=== PATIENT | male | born 1955 | race Hispanic/Latino ===

== ENCOUNTER 2017-11-15 18:22 | Emergency (ER) | payer OTHER ==
[2017-11-15 18:58] LABS: APPEARANCE,URINE Cloudy (CLEAR); BILIRUBIN,URINE Moderate (NEGATIVE); COLOR,URINE Dark Yellow (YELLOW); GLUCOSE, URINE (UA) Negative (NEGATIVE); KETONES,URINE Trace mg/dL (NEGATIVE); LEUKOCYTE ESTERASE ,URINE Trace (NEGATIVE); NITRATE,URINE Negative (NEGATIVE); OCCULT BLOOD,URINE Negative (NEGATIVE); PROTEIN,URINE 300 (NEGATIVE)
[2017-11-15 18:59] LABS: BASOPHILS % (AUTO) 0.3 % (0.0-5.0); EOSINOPHILS % (AUTO) 2.2 % (0.0-8.0); HEMATOCRIT 47.5 % (42-54); LYMPHOCYTES % (AUTO) 7.7 % (21.0-51.0); MEAN CORPUSCULAR HEMOGLOBIN 29.6 pg (27.0-33.0); MEAN CORPUSCULAR HGB CONC 33.8 g/dL (32.0-36.0); MEAN CORPUSCULAR VOLUME 87.4 fL (79-99); MONOCYTES % (AUTO) 10.7 % (3.0-13.0); NEUTROPHILS % (AUTO) 79.1 % (40.0-77.0); PLATELET COUNT (AUTO) 365 K/uL (130-400); RED BLOOD CELL COUNT(AUTO) 5.43 MIL/uL (4.50-6.20); RED CELL DISTRIBUTION WIDTH 13.7 % (11.0-15.5); WHITE BLOOD COUNT (AUTO) 15.6 K/uL (4.8-10.8)
[2017-11-15 19:01] LABS: CARBON DIOXIDE 22 mmol/L (21-32); CHLORIDE 103 mmol/L (101-111); GLOMERULAR FILTR. RATE CALC 80 mL/min (>60); GLUCOSE,RANDOM 179 mg/dL (70-105); INR 0.92 (0.85-1.15); PARTIAL THROMBOPLASTIN TIME 26.6 SEC (26.3-35.5); POTASSIUM 4.4 mmol/L (3.5-5.1); PROTHROMBIN TIME 9.7 SEC (9.6-11.6); SODIUM SERUM 137 mmol/L (136-145); UREA NITROGEN, BLOOD 17 mg/dL (7-18)
[2017-11-15 19:16] LABS: ALANINE AMINOTRANSFERASE 21 U/L (12-78); ALBUMIN 3.5 g/dL (3.5-5.0); ASPARTATE AMINOTRANSFERASE 23 U/L (10-37); BILIRUBIN,TOTAL 0.5 mg/dL (0.2-1.0); CREATINE KINASE MB < 0.5 ng/mL (0.5-3.6); CREATINE KINASE, TOTAL 75 U/L (21-232); MYOGLOBIN 65 ng/mL (10-92); TOTAL PROTEIN, SERUM 7.1 g/dL (6.0-8.3); TROPONIN I < 0.04 ng/mL (0.00-0.06)
[2017-11-15] MEDS ORDERED: ACETAMINOPHEN 325 MG TAB ONE (19:19)
[2017-11-15] MEDS ORDERED: ONDANSETRON HCL 4 MG/2 ML VIAL ONE (19:19)
[2017-11-15] MEDS ORDERED: MORPHINE SULFATE 2 MG/ML 1ML SYG ONE (19:28)
[2017-11-15 19:39] LABS: HYALINE CASTS, URINE 0-1 /LPF (0-1 /LPF)
[2017-11-15 19:40] LABS: AMORPHOUS SEDIMENT,UR Few /LPF (None Seen); BACTERIA,URINE Few /HPF (None Seen); MUCUS,URINE Many LPF (None Seen); RBC,URINE 0-1 /HPF (0-1); WBC,URINE 0-1 /HPF (0-1)
[2017-11-15] MEDS ORDERED: SUCRALFATE 1 GM TABLET ONE (22:20)
== END 2017-11-15 23:24 | disposition home or self-care (01) ==
LOC: EDH 18:22
DX: A09 Infectious gastroenteritis and colitis, unspecified (principal); E86.0 Dehydration; E11.9 Type 2 diabetes mellitus without complications; E78.5 Hyperlipidemia, unspecified; I10 Essential (primary) hypertension; Z86.73 Personal history of transient ischemic attack (TIA), and cerebral infarction without residual deficits; Z72.0 Tobacco use
CPT/HCPCS: 36415; 71045; 80053; 81001; 82550; 82553; 83605; 83874; 84484; 85025; 85610; 85730; 87040 ×2; 87088; 93005; 96361; 96374; 96375; 99285; J2405

== ENCOUNTER 2019-01-22 04:00 | Inpatient (IN) | payer OTHER | END 2019-01-23 19:20 | disposition home or self-care (01) | LOC: EDH 04:00 → EDHIP 05:25 → 2DH 06:12 | PROC: B2111ZZ Fluoroscopy of Multiple Coronary Arteries using Low Osmolar Contrast (ICD-10-PCS; principal; ~2019-01-22) | PROC: 4A023N7 Measurement of Cardiac Sampling and Pressure, Left Heart, Percutaneous Approach (ICD-10-PCS; ~2019-01-22) | PROC: B2151ZZ Fluoroscopy of Left Heart using Low Osmolar Contrast (ICD-10-PCS; ~2019-01-22) | DX: I21.4 Non-ST elevation (NSTEMI) myocardial infarction (principal); I16.1 Hypertensive emergency; I34.0 Nonrheumatic mitral (valve) insufficiency; F17.200 Nicotine dependence, unspecified, uncomplicated; I25.110 Atherosclerotic heart disease of native coronary artery with unstable angina pectoris; I10 Essential (primary) hypertension ==

== ENCOUNTER 2019-05-20 14:18 | Observation (INO) | payer OTHER ==
[~2019-05-20] VITALS: Ht 170.2 cm; Wt 79.7 kg
[~2019-05-20 14:18] MED LIST: ASPI-1005 PO; ATOR40TA69 PO; CARV6.2579 PO; LISI-617 PO; PRAS10TA6 PO
[2019-05-20 14:47] LABS: BASOPHILS % (AUTO) 1.3 % (0.0-5.0); EOSINOPHILS % (AUTO) 9.9 % (0.0-8.0); HEMATOCRIT 41.4 % (42-54); LYMPHOCYTES % (AUTO) 29.3 % (21.0-51.0); MEAN CORPUSCULAR HEMOGLOBIN 31.4 pg (27.0-33.0); MEAN CORPUSCULAR HGB CONC 34.1 g/dL (32.0-36.0); MEAN CORPUSCULAR VOLUME 91.9 fL (79-99); MONOCYTES % (AUTO) 9.9 % (3.0-13.0); NEUTROPHILS % (AUTO) 49.6 % (40.0-77.0); NUCLEATED RED BLOOD CELLS 0.1 % (0.0-0.19); PLATELET COUNT (AUTO) 321 K/uL (130-400); RED BLOOD CELL COUNT(AUTO) 4.51 MIL/uL (4.50-6.20); RED CELL DISTRIBUTION WIDTH 14.3 % (11.0-15.5); WHITE BLOOD COUNT (AUTO) 9.9 K/uL (4.8-10.8)
[2019-05-20 15:04] LABS: POTASSIUM 4.4 mmol/L (3.5-5.1)
[2019-05-20 15:06] LABS: INR 0.92 (0.85-1.15); PARTIAL THROMBOPLASTIN TIME 25.9 SEC (26.3-35.5); PROTHROMBIN TIME 9.7 SEC (9.6-11.6)
[2019-05-20 15:09] LABS: ALBUMIN 2.9 g/dL (3.5-5.0); BILIRUBIN,TOTAL 0.2 mg/dL (0.2-1.0); TOTAL PROTEIN, SERUM 6.7 g/dL (6.0-8.3)
[2019-05-20] MEDS ORDERED: ASPIRIN 325 MG TABLET ONE (15:29)
[2019-05-20 17:32] LABS: APPEARANCE,URINE Clear (CLEAR); BILIRUBIN,URINE Negative (NEGATIVE); COLOR,URINE Yellow (YELLOW); GLUCOSE, URINE (UA) TRACE mg/dL (NEGATIVE); KETONES,URINE Negative (NEGATIVE); LEUKOCYTE ESTERASE ,URINE Negative (NEGATIVE); NITRATE,URINE Negative (NEGATIVE); OCCULT BLOOD,URINE Negative (NEGATIVE); PROTEIN,URINE POS 2+ mg/dL (NEGATIVE); UROBILINOGEN,URINE 0.2 mg/dL (0.2-1.0)
[2019-05-20 17:39] LABS: AMPHET/METH SCREEN,URINE NEGATIVE (NEGATIVE); BARBITURATE SCREEN, URINE NEGATIVE (NEGATIVE); BENZODIAZEPINES SCREEN,URINE NEGATIVE (NEGATIVE); CANNABINOID SCREEN,URINE NEGATIVE (NEGATIVE); COCAINE SCREEN,URINE NEGATIVE (NEGATIVE); OPIATE SCREEN,URINE NEGATIVE (NEGATIVE); PHENCYCLIDINE SCREEN,URINE NEGATIVE (NEGATIVE)
[2019-05-20 17:50] LABS: RBC,URINE 0-1 /HPF (0-1); WBC,URINE 0-1 /HPF (0-1)
[2019-05-20 17:51] LABS: BACTERIA,URINE Rare /HPF (None Seen); SQUAMOUS EPITHELIAL CELL,UR None Seen /HPF (0-2)
[2019-05-20] MEDS ORDERED: HYDRALAZINE HCL 20 MG/ML VIAL ONE (18:44)
[2019-05-20] MEDS ORDERED: SODIUM CHLORIDE 0.9% 1000ML 1,000 ML IV ONE (19:53)
[2019-05-20] MEDS ORDERED: FAMOTIDINE/PF 20 MG/2 ML VIAL IV ONE (19:54)
--- NOTE | 2019-05-20 20:00 | NUR ---
BEDSIDE SWALLOW STUDY APPLE SAUCE GIVEN PT STATED IT FELT LIKE "SOMETHING IS STUCK IN MY THROAT". PT PLACED IN HIGH FOWLERS AGAIN APPLE SAUCE GIVEN GAIN PT STATED "IT STILL FEELS LIKE SOMETHING IS STUCK". BEDSIDE SWALLOW STUDY TERMINATED.
--- NOTE | 2019-05-20 20:00 | NUR ---
NEW ADMIT/ ASSESSMENT AT 64 YEAR OLD MALE PT, ADMITTED TO ROOM 205, AAOX4, PLEASANT, TALKATIVE, AT BEDSIDE. PT ORIENTED TO ROOM, CALLBELL REVIEWED AND WITHIN REACH. CURRENTLY DENIES ANY PAIN, CHEST PAIN, S.O.B., NUMBNESS OR TINGLING TO ARMS OR LEGS. SEE ASSESSMENT.
[2019-05-20] MEDS ORDERED: GLUCAGON 1MG KIT 1 MG ML IM PRN (20:30)
[2019-05-20] MEDS ORDERED: SODIUM CHLORIDE 0.9% 1000ML 1,000 ML IV SCH (20:30)
[2019-05-20] MEDS ORDERED: DEXTROSE 50%-WATER 50 ML DISP.SYRIN IV PRN (20:30)
[2019-05-20] MEDS ORDERED: ACETAMINOPHEN 325 MG TAB PO PRN ×2 (21:00)
[2019-05-20] MEDS ORDERED: HYDRALAZINE HCL 20 MG/ML VIAL IV PRN (21:00)
[2019-05-20] MEDS ORDERED: LACTULOSE 20 GM/30 ML UDCUP PO PRN (21:00)
[2019-05-20] MEDS ORDERED: ONDANSETRON HCL 4 MG/2 ML VIAL IVP PRN (21:00)
[2019-05-20] MEDS ORDERED: NITROGLYCERIN 0.4 MG SL TAB SL PRN (21:00)
[2019-05-20 21:10] LABS: CREATINE KINASE, TOTAL 55 U/L (21-232); MYOGLOBIN 36 ng/mL (10-92); TROPONIN I < 0.04 ng/mL (0.00-0.06)
[2019-05-20 21:41] VITALS: BP 168/61
[2019-05-20 23:00] VITALS: BP 151/53
[2019-05-21 03:00] VITALS: BP 151/68
[2019-05-21 04:42] LABS: CREATINE KINASE, TOTAL 47 U/L (21-232); MYOGLOBIN 45 ng/mL (10-92); TROPONIN I < 0.04 ng/mL (0.00-0.06)
[2019-05-21] MEDS: INSULIN HUMULIN R 100 UNIT/ML 3ML SQ SCH ×2 (06:00)
[2019-05-21 07:37] VITALS: BP 167/67
--- NOTE | 2019-05-21 07:50 | NUR ---
ASSESSMENT ENCOUNTERED PT ASLEEP BUT AROUSEABLE, A&OX3, CALM COOPERATIVE AND DOES NOT APPEAR TO BE IN ANY DISTRESS. PT DOES HAVE RT UPPER AND LOWER EXTREMITY WEAKNESS. PT IS ABLE TO TOLERATE FOODS FLUIDS AND MEDICATION WITH NO THROAT CLEARING OR COUGH. PT IS AMBULATORY, GAIT SLOW BUT STEADY WITH STAND BY ASSIST. PT IS NPO UNTIL SEEN BY PRIMARY MD. CALL LIGHT WITHIN REACH, FAMILY AT BEDSIDE.
[2019-05-21] MEDS ORDERED: FAMOTIDINE/PF 20 MG/2 ML VIAL IV SCH (09:00)
[2019-05-21] MEDS ORDERED: CLOPIDOGREL BISULFATE 75 MG TAB PO SCH (09:00)
[2019-05-21] MEDS ORDERED: ASPIRIN 325 MG TABLET PO SCH (09:00)
[2019-05-21 11:18] VITALS: BP 156/71
[2019-05-21] MEDS ORDERED: GADODIAMIDE 10 MMOL/20 ML VIAL IV ONE (12:35)
[2019-05-21] MEDS ORDERED: ATORVASTATIN CALCIUM 40 MG TABLET PO SCH (21:00)
--- NOTE | 2019-05-22 13:00 | NUR ---
DISCHARGE INSTRUCTIONS GIVEN, PIV REMOVED AND INTACT. DISCHARGED HOME TO FAMILY VEHICLE VIA WHEELCHAIR.
== END 2019-05-21 15:19 | disposition home or self-care (01) ==
LOC: EDH 14:18 → EDHIP 18:24 → 2AH 19:03
PROVIDERS: ADMIT Internal Medicine Critical Care Medicine; ATTEND Internal Medicine Critical Care Medicine
DX: R20.2 Paresthesia of skin (principal); I21.4 Non-ST elevation (NSTEMI) myocardial infarction; I11.0 Hypertensive heart disease with heart failure; I50.22 Chronic systolic (congestive) heart failure; I25.10 Atherosclerotic heart disease of native coronary artery without angina pectoris; I25.2 Old myocardial infarction; E11.51 Type 2 diabetes mellitus with diabetic peripheral angiopathy without gangrene; E78.5 Hyperlipidemia, unspecified; F17.200 Nicotine dependence, unspecified, uncomplicated; Z91.19 Patient's noncompliance with other medical treatment and regimen; Z86.73 Personal history of transient ischemic attack (TIA), and cerebral infarction without residual deficits; Z95.5 Presence of coronary angioplasty implant and graft; Z79.02 Long term (current) use of antithrombotics/antiplatelets; Z79.84 Long term (current) use of oral hypoglycemic drugs; Z79.899 Other long term (current) drug therapy
CPT/HCPCS: 36415 ×2; 70450; 70553; 71045; 80053; 80305; 81001; 82550 ×3; 82948 ×4; 83721; 83874 ×2; 84484 ×3; 85025; 85610; 85730; 93005 ×3; 93880; 96374; 96375; 96376; 97161; 99284; A4600; A9579; G0378 ×20; G8978; G8979; G8980; G8981; G8982; G8983; J0360 ×2; J3490 ×2; J7030

== ENCOUNTER 2019-12-08 16:26 | Inpatient (IN) | payer OTHER ==
[~2019-12-08] VITALS: Ht 165.1 cm; Wt 79.2 kg
[~2019-12-08 16:26] MED LIST changes: -CARV6.2579 PO
[2019-12-08] MEDS ORDERED: SODIUM CHLORIDE 0.9% 1000ML 1,000 ML IV ONE (17:31)
[2019-12-08 17:52] LABS: BASOPHILS % (AUTO) 0.5 % (0.0-5.0); HEMATOCRIT 43.9 % (42-54); LYMPHOCYTES % (AUTO) 19.4 % (21.0-51.0); MEAN CORPUSCULAR HEMOGLOBIN 29.4 pg (27.0-33.0); MEAN CORPUSCULAR HGB CONC 33.3 g/dL (32.0-36.0); MEAN CORPUSCULAR VOLUME 88.5 fL (79-99); MONOCYTES % (AUTO) 9.8 % (3.0-13.0); NEUTROPHILS % (AUTO) 62.9 % (40.0-77.0); PLATELET COUNT (AUTO) 357 K/uL (130-400); RED BLOOD CELL COUNT(AUTO) 4.96 MIL/uL (4.50-6.20); RED CELL DISTRIBUTION WIDTH 12.8 % (11.0-15.5); WHITE BLOOD COUNT (AUTO) 10.9 K/uL (4.8-10.8)
[2019-12-08 18:12] LABS: CREATININE 1.1 mg/dL (0.5-1.5); POTASSIUM 3.8 mmol/L (3.5-5.1)
[2019-12-08 18:13] LABS: PARTIAL THROMBOPLASTIN TIME 26.6 SEC (26.3-35.5)
[2019-12-08 18:17] LABS: ALBUMIN 2.8 g/dL (3.5-5.0); BILIRUBIN,TOTAL 0.3 mg/dL (0.2-1.0); TOTAL PROTEIN, SERUM 6.7 g/dL (6.0-8.3)
[2019-12-08 18:30] LABS: INR 0.89 (0.85-1.15); PROTHROMBIN TIME 9.7 SEC (9.6-11.6)
[2019-12-08] MEDS ORDERED: ASPIRIN 325 MG TABLET ONE (18:47)
[2019-12-08] MEDS ORDERED: ONDANSETRON HCL 4 MG/2 ML VIAL IV PRN (19:00)
[2019-12-08] MEDS ORDERED: LACTULOSE 20 GM/30 ML UDCUP PO PRN (19:00)
[2019-12-08] MEDS ORDERED: HYDRALAZINE HCL 20 MG/ML VIAL IV PRN (19:00)
[2019-12-08] MEDS ORDERED: ACETAMINOPHEN 325 MG TAB PO PRN ×2 (19:00)
[2019-12-08 20:07] LABS: HEMOGLOBIN A1C 10.9 % (4.0-6.0)
[2019-12-08 20:09] LABS: CHOLESTEROL 282 mg/dL (<200); HDL CHOLESTEROL 29 mg/dL (29-71); LDL DIRECT 182 mg/dL (0-99); TRIGLYCERIDES 320 mg/dL (30-200)
[2019-12-08] MEDS ORDERED: ATORVASTATIN CALCIUM 20 MG TABLET PO SCH (21:00)
[2019-12-08] MEDS: METOPROLOL TARTRATE 25 MG TAB PO SCH (21:00)
[2019-12-08] MEDS ORDERED: ATORVASTATIN CALCIUM 20 MG TABLET ONE (21:02)
[2019-12-08] MEDS ORDERED: METOPROLOL TARTRATE 25 MG TAB ONE (21:03)
[2019-12-08] MEDS ORDERED: INSULIN HUMULIN R 100 UNIT/ML 3ML ONE (21:16)
[2019-12-08 23:45] VITALS: BP 180/74
[2019-12-09] VITALS (7 sets, daily range): BP systolic 130–154; BP diastolic 50–70
[2019-12-09 00:15] LABS: CREATININE 1.1 mg/dL (0.5-1.5); POTASSIUM 3.8 mmol/L (3.5-5.1)
[2019-12-09] MEDS: INSULIN HUMULIN R 100 UNIT/ML 3ML SQ SCH ×4 (00:48→22:22)
[2019-12-09] MEDS ORDERED: CLOP75TA14 PO (02:04)
[2019-12-09] MEDS ORDERED: CARV6.2579 PO (02:04)
[2019-12-09 04:01] LABS: BASOPHILS % (AUTO) 0.4 % (0.0-5.0); EOSINOPHILS % (AUTO) 9.2 % (0.0-8.0); MEAN CORPUSCULAR HEMOGLOBIN 29.3 pg (27.0-33.0); MEAN CORPUSCULAR HGB CONC 32.9 g/dL (32.0-36.0); MEAN CORPUSCULAR VOLUME 88.9 fL (79-99); MONOCYTES % (AUTO) 11.1 % (3.0-13.0); PLATELET COUNT (AUTO) 334 K/uL (130-400); RED BLOOD CELL COUNT(AUTO) 4.61 MIL/uL (4.50-6.20); RED CELL DISTRIBUTION WIDTH 12.8 % (11.0-15.5); WHITE BLOOD COUNT (AUTO) 10.1 K/uL (4.8-10.8)
[2019-12-09 04:15] LABS: CREATININE 1.1 mg/dL (0.5-1.5); POTASSIUM 3.5 mmol/L (3.5-5.1)
[2019-12-09] MEDS ORDERED: ASPIRIN 325 MG TABLET PO SCH (09:00)
--- NOTE | 2019-12-09 09:30 | NUR ---
DYSPHAGIA EVAL COMPLETED. S/S OF ASPIRATION AT THIS TIME. RECOMMEND MECHANICAL SOFT/GROUND, THIN LIQUIDS, AND PILLS WHOLE WITH LIQUIDS TOLERATED. Pt DOWNGRADED TO MECHANICAL SOFT/GROUND DUE TO MISSING TEETH. GRAPHIC SPECIALIST EDUCATED Pt ON RISKS AND CONSEQUENCES OF ASPIRATION. ALL QUESTIONS ANSWERED AT THIS TIME. GRAPHIC SPECIALIST COORDINATED WITH NURSE RIDER. Addendum: 12/09/[address]EE SIEGEL Amended: Links added.
[2019-12-09] MEDS ORDERED: LISINOPRIL 5 MG TABLET PO SCH (10:00)
[2019-12-09] MEDS ORDERED: ASPIRIN 81MG TAB.CHEW ONE (10:03)
[2019-12-09] MEDS: CLOPIDOGREL BISULFATE 75 MG TAB PO SCH (10:06)
[2019-12-09] MEDS: METOPROLOL TARTRATE 25 MG TAB PO SCH ×2 (10:06→21:00)
--- NOTE | 2019-12-09 14:42 | NUR ---
DCP CM met with pt discussed dc plans. Pt is independent prior to admission, lives at home with spouse. Pt has a walker. Denies any other equipments/services. Feels safe to go back home, spouse able to assist with transportation and needs as necessary. DC plan to home once stable. CM to cont to follow up. Addendum: 12/09/19 at 1443 by JARED JOHNSON LVN CM Amended: Links added.
--- NOTE | 2019-12-09 15:24 | NUR ---
1440 patient signed IM Letter. I faxed IM Letter to [phone] and placed in chart under consent tab.
[2019-12-09] MEDS: ATORVASTATIN CALCIUM 40 MG TABLET PO SCH (21:43)
[2019-12-10 03:41] VITALS: BP 145/67
[2019-12-10 03:49] LABS: BASOPHILS % (AUTO) 0.4 % (0.0-5.0); EOSINOPHILS % (AUTO) 8.9 % (0.0-8.0); HEMATOCRIT 41.1 % (42-54); LYMPHOCYTES % (AUTO) 23.2 % (21.0-51.0); MEAN CORPUSCULAR HEMOGLOBIN 28.9 pg (27.0-33.0); MEAN CORPUSCULAR HGB CONC 32.6 g/dL (32.0-36.0); MEAN CORPUSCULAR VOLUME 88.6 fL (79-99); MONOCYTES % (AUTO) 10.5 % (3.0-13.0); NEUTROPHILS % (AUTO) 56.6 % (40.0-77.0); PLATELET COUNT (AUTO) 343 K/uL (130-400); RED BLOOD CELL COUNT(AUTO) 4.64 MIL/uL (4.50-6.20); RED CELL DISTRIBUTION WIDTH 12.9 % (11.0-15.5); WHITE BLOOD COUNT (AUTO) 11.2 K/uL (4.8-10.8)
[2019-12-10] MEDS: INSULIN HUMULIN R 100 UNIT/ML 3ML SQ SCH ×4 (05:48→22:03)
[2019-12-10 08:00] VITALS: BP 139/58
[2019-12-10] MEDS ORDERED: PHARMACY COMMUNICATION MISC SCH (08:30)
[2019-12-10] MEDS: LISINOPRIL 5 MG TABLET PO SCH (08:42)
[2019-12-10] MEDS: CLOPIDOGREL BISULFATE 75 MG TAB PO SCH (08:42)
[2019-12-10] MEDS: METOPROLOL TARTRATE 25 MG TAB PO SCH ×2 (08:42→20:35)
[2019-12-10] MEDS: ASPIRIN 81 MG EC TAB PO SCH (08:43)
--- NOTE | 2019-12-10 09:10 | NUR ---
FOLLOW UP COMPLETED. MALTED MILK MIXER COORDINATED WITH NURSE ALONSO. Pt TOLERATING DIET RECOMMENDATIONS WITH NO S/S OF ASPIRATION AT THIS TIME. CONTINUE WITH PLAN OF CARE TOLERATED. Addendum: 12/10/[address] SIEGEL Amended: Links added.
[2019-12-10 12:00] VITALS: BP 147/67
[2019-12-10 16:00] VITALS: BP 169/74
[2019-12-10 19:29] VITALS: BP 140/65
[2019-12-10] MEDS: ATORVASTATIN CALCIUM 40 MG TABLET PO SCH (20:35)
[2019-12-10 23:28] VITALS: BP 114/50
[2019-12-11 03:35] VITALS: BP 146/92
[2019-12-11 06:03] LABS: BASOPHILS % (AUTO) 0.4 % (0.0-5.0); EOSINOPHILS % (AUTO) 6.4 % (0.0-8.0); HEMATOCRIT 41.6 % (42-54); LYMPHOCYTES % (AUTO) 23.8 % (21.0-51.0); MEAN CORPUSCULAR HEMOGLOBIN 28.2 pg (27.0-33.0); MEAN CORPUSCULAR HGB CONC 31.5 g/dL (32.0-36.0); MEAN CORPUSCULAR VOLUME 89.7 fL (79-99); MONOCYTES % (AUTO) 8.7 % (3.0-13.0); NEUTROPHILS % (AUTO) 60.4 % (40.0-77.0); PLATELET COUNT (AUTO) 381 K/uL (130-400); RED BLOOD CELL COUNT(AUTO) 4.64 MIL/uL (4.50-6.20); WHITE BLOOD COUNT (AUTO) 11.4 K/uL (4.8-10.8)
[2019-12-11] MEDS: INSULIN HUMULIN R 100 UNIT/ML 3ML SQ SCH ×2 (06:10→11:22)
[2019-12-11 06:40] LABS: ALBUMIN 2.6 g/dL (3.5-5.0); BILIRUBIN,TOTAL 0.4 mg/dL (0.2-1.0); CREATININE 1.1 mg/dL (0.5-1.5); POTASSIUM 3.5 mmol/L (3.5-5.1); TOTAL PROTEIN, SERUM 6.3 g/dL (6.0-8.3)
--- NOTE | 2019-12-11 08:00 | NUR ---
AM SHIFT ASSESSMENT.NOTED TO HAVE WEAKNESS TO RT. ARM. HAS TO SUPPORT RT.ARM/HAND WITH LT. HAND.
[2019-12-11 08:31] VITALS: BP 146/61
[2019-12-11] MEDS: METOPROLOL TARTRATE 25 MG TAB PO SCH (09:46)
[2019-12-11] MEDS: LISINOPRIL 5 MG TABLET PO SCH (09:46)
[2019-12-11] MEDS: CLOPIDOGREL BISULFATE 75 MG TAB PO SCH (09:46)
[2019-12-11] MEDS: ASPIRIN 81 MG EC TAB PO SCH (09:47)
[2019-12-11 11:27] VITALS: BP 151/75
--- NOTE | 2019-12-11 13:46 | NUR ---
DR. HOANG IN TO SEE PT.
--- NOTE | 2019-12-11 19:30 | NUR ---
DISCHARGED NOW USING TEACH BACK. RX. GIVEN FOR SEVERAL MEDICATIONS. LIST OF LOCAL DRS. GIVEN AND WILL FOLLOW UP [facility] IF THEY WILL TAKE HIM.STATES WEAKNESS TO RT. LEG HAS IMPROVED, NOW NEEDS TO WORK ON RT. ARM .INST. TO RETURN TO ER IF NEEDED.
== END 2019-12-11 15:30 | disposition home or self-care (01) | DRG 65 ==
LOC: EDH 16:26 → OBSVTOIN 18:53 → EDHIP 18:53 → 4AH 23:36
PROVIDERS: ADMIT Internal Medicine; ATTEND Internal Medicine
DX: I63.50 Cerebral infarction due to unspecified occlusion or stenosis of unspecified cerebral artery (principal); I50.22 Chronic systolic (congestive) heart failure; G81.91 Hemiplegia, unspecified affecting right dominant side; R29.706 NIHSS score 6; I11.0 Hypertensive heart disease with heart failure; I25.10 Atherosclerotic heart disease of native coronary artery without angina pectoris; E11.51 Type 2 diabetes mellitus with diabetic peripheral angiopathy without gangrene; J32.3 Chronic sphenoidal sinusitis; E78.5 Hyperlipidemia, unspecified; Z98.61 Coronary angioplasty status; Z72.0 Tobacco use; Z86.73 Personal history of transient ischemic attack (TIA), and cerebral infarction without residual deficits; Z83.3 Family history of diabetes mellitus; Z80.9 Family history of malignant neoplasm, unspecified; Z82.49 Family history of ischemic heart disease and other diseases of the circulatory system
CPT/HCPCS: 36415; 70450; 70544; 70547; 70551; 71045; 80048; 80053; 80061; 82550; 82948; 83036; 83721; 84484; 85025; 85610; 85730; 92610; 93005; 93306; 93356; 93880; 97039; 99291; G0378; J1815; J7030

== ENCOUNTER 2020-02-11 22:10 | Inpatient (IN) | payer OTHER ==
[~2020-02-11] VITALS: Ht 167.6 cm; Wt 62.7 kg
[~2020-02-11 22:10] MED LIST changes: +CARV6.2579 PO; +CLOP75TA14 PO
[2020-02-11 22:49] LABS: BASOPHILS % (AUTO) 0.6 % (0.0-5.0); EOSINOPHILS % (AUTO) 12.8 % (0.0-8.0); HEMATOCRIT 43.2 % (42-54); LYMPHOCYTES % (AUTO) 28.6 % (21.0-51.0); MEAN CORPUSCULAR HEMOGLOBIN 29.5 pg (27.0-33.0); MEAN CORPUSCULAR HGB CONC 31.5 g/dL (32.0-36.0); MEAN CORPUSCULAR VOLUME 93.7 fL (79-99); MONOCYTES % (AUTO) 9.5 % (3.0-13.0); NEUTROPHILS % (AUTO) 48.3 % (40.0-77.0); PLATELET COUNT (AUTO) 390 K/uL (130-400); RED BLOOD CELL COUNT(AUTO) 4.61 MIL/uL (4.50-6.20); RED CELL DISTRIBUTION WIDTH 13.2 % (11.0-15.5); WHITE BLOOD COUNT (AUTO) 13.4 K/uL (4.8-10.8)
[2020-02-11 23:01] LABS: INR 0.92 (0.85-1.15); PARTIAL THROMBOPLASTIN TIME 22.4 SEC (26.3-35.5)
[2020-02-11 23:03] LABS: ALBUMIN 3.8 g/dL (3.5-5.0); BILIRUBIN,TOTAL 0.2 mg/dL (0.2-1.0); CREATININE 1.3 mg/dL (0.5-1.5); TOTAL PROTEIN, SERUM 7.7 g/dL (6.0-8.3)
[2020-02-11 23:13] LABS: POTASSIUM 6.6 mmol/L (3.5-5.1)
[2020-02-12 00:46] LABS: APPEARANCE,URINE Clear (CLEAR); BILIRUBIN,URINE Negative (NEGATIVE); COLOR,URINE Yellow (YELLOW); GLUCOSE, URINE (UA) Negative (NEGATIVE); KETONES,URINE Negative (NEGATIVE); LEUKOCYTE ESTERASE ,URINE Negative (NEGATIVE); NITRATE,URINE Negative (NEGATIVE); OCCULT BLOOD,URINE Negative (NEGATIVE); PROTEIN,URINE POS 1+ mg/dL (NEGATIVE); UROBILINOGEN,URINE 0.2 mg/dL (0.2-1.0)
[2020-02-12 00:55] LABS: AMPHET/METH SCREEN,URINE NEGATIVE (NEGATIVE); BARBITURATE SCREEN, URINE NEGATIVE (NEGATIVE); BENZODIAZEPINES SCREEN,URINE NEGATIVE (NEGATIVE); CANNABINOID SCREEN,URINE NEGATIVE (NEGATIVE); COCAINE SCREEN,URINE NEGATIVE (NEGATIVE); OPIATE SCREEN,URINE NEGATIVE (NEGATIVE); PHENCYCLIDINE SCREEN,URINE NEGATIVE (NEGATIVE)
[2020-02-12 01:05] LABS: BACTERIA,URINE Rare /HPF (None Seen); RBC,URINE 0-1 /HPF (0-1); WBC,URINE 0-1 /HPF (0-1)
[2020-02-12] MEDS ORDERED: ASPIRIN 325 MG TABLET ONE (01:15)
[2020-02-12] MEDS ORDERED: SODIUM POLYSTYRENE SULFONATE 15 GM/60 ML ML ONE (01:15)
[2020-02-12] MEDS ORDERED: CALCIUM GLUCONATE 1 GM/10 ML VIAL IV ONE (01:15)
[2020-02-12] MEDS ORDERED: SODIUM BICARB 50MEQ 50ML VIAL ONE (01:16)
[2020-02-12] MEDS ORDERED: NITROGLYCERIN 0.4 MG SL TAB SL PRN (01:30)
[2020-02-12] MEDS ORDERED: ACETAMINOPHEN 325 MG TAB PO PRN ×2 (01:30)
[2020-02-12] MEDS ORDERED: ONDANSETRON HCL 4 MG/2 ML VIAL IV PRN (01:30)
[2020-02-12] MEDS ORDERED: ACETAMINOPHEN-CODEINE 300/30MG TAB PO PRN (01:30)
[2020-02-12] MEDS ORDERED: SODIUM POLYSTYRENE SULFONATE 15 GM/60 ML ML PO SCH (01:45)
[2020-02-12] MEDS ORDERED: HYDRALAZINE HCL 20 MG/ML VIAL IV PRN (02:30)
[2020-02-12 03:15] VITALS: BP 131/55
[2020-02-12] MEDS: SODIUM CHLORIDE 0.9% 1000ML 1,000 ML IV SCH ×2 (05:33→19:30)
[2020-02-12] MEDS: INSULIN HUMULIN R 100 UNIT/ML 3ML SQ SCH ×4 (05:33→21:00)
--- NOTE | 2020-02-12 06:37 | NUR ---
received report from am nurse, admission assessment , head to toe assessment , care plan done, timed medication given, see emar, covid swab test done and sent to lab, safety maintained, bed alarm on, fs checked 58 given apple sauce rechecked 99 mg/dl. will continue to monitor.
[2020-02-12 07:12] LABS: HEMATOCRIT 38.4 % (42-54); MEAN CORPUSCULAR HEMOGLOBIN 28.9 pg (27.0-33.0); MEAN CORPUSCULAR HGB CONC 31.5 g/dL (32.0-36.0); MEAN CORPUSCULAR VOLUME 91.6 fL (79-99); RED BLOOD CELL COUNT(AUTO) 4.19 MIL/uL (4.50-6.20); RED CELL DISTRIBUTION WIDTH 13.2 % (11.0-15.5); WHITE BLOOD COUNT (AUTO) 11.4 K/uL (4.8-10.8)
[2020-02-12 07:34] LABS: CREATININE 1.3 mg/dL (0.5-1.5); POTASSIUM 5.1 mmol/L (3.5-5.1)
[2020-02-12] MEDS ORDERED: ENOXAPARIN SODIUM 40 MG/0.4 ML SYRINGE SQ SCH (09:00)
[2020-02-12] MEDS ORDERED: ASPIRIN 325 MG TABLET PO SCH (09:00)
[2020-02-12 09:13] LABS: THYROID STIMULATING HORMONE 1.9 uIU/mL (0.36-3.74)
[2020-02-12 10:01] VITALS: BP 132/58
[2020-02-12] MEDS: THIAMINE HCL 100 MG TABLET PO SCH (12:42)
[2020-02-12] MEDS: MULTIVITAMIN TABLET PO SCH (12:42)
[2020-02-12] MEDS ORDERED: METF-444 PO (15:51)
[2020-02-12 17:20] VITALS: BP 114/65
[2020-02-12] MEDS: ACETAMINOPHEN-CODEINE 300/30MG TAB PO PRN (17:38)
--- NOTE | 2020-02-12 19:23 | NUR ---
cm note met with patient and states resides at home with spouse , spouse assists him with adls and self care. uses quad cane for ambulation. daughter transports him to md appts. dc plan is back home. states no dc needs.feels safe to return home. Addendum: 02/12/20 at 1925 by THONY HANDY CM Amended: Links added.
[2020-02-12 19:59] VITALS: BP 125/43
[2020-02-12] MEDS: CARVEDILOL 6.25 MG TABLET PO SCH (21:00)
[2020-02-12] MEDS: ATORVASTATIN CALCIUM 40 MG TABLET PO SCH (21:56)
[2020-02-12] MEDS: GABAPENTIN 100 MG CAPSULE PO SCH (21:57)
[2020-02-12 23:50] VITALS: BP 125/43
[2020-02-13 03:58] VITALS: BP 130/40
[2020-02-13 05:08] LABS: BASOPHILS % (AUTO) 0.9 % (0.0-5.0); EOSINOPHILS % (AUTO) 13.5 % (0.0-8.0); HEMATOCRIT 41.5 % (42-54); LYMPHOCYTES % (AUTO) 36.2 % (21.0-51.0); MEAN CORPUSCULAR HEMOGLOBIN 28.5 pg (27.0-33.0); MEAN CORPUSCULAR HGB CONC 31.1 g/dL (32.0-36.0); MEAN CORPUSCULAR VOLUME 91.6 fL (79-99); MONOCYTES % (AUTO) 7.8 % (3.0-13.0); NEUTROPHILS % (AUTO) 41.3 % (40.0-77.0); PLATELET COUNT (AUTO) 385 K/uL (130-400); RED BLOOD CELL COUNT(AUTO) 4.53 MIL/uL (4.50-6.20); RED CELL DISTRIBUTION WIDTH 13.2 % (11.0-15.5); WHITE BLOOD COUNT (AUTO) 11.7 K/uL (4.8-10.8)
[2020-02-13 05:12] LABS: CREATININE 1.2 mg/dL (0.5-1.5); POTASSIUM 5.4 mmol/L (3.5-5.1)
[2020-02-13] MEDS: INSULIN HUMULIN R 100 UNIT/ML 3ML SQ SCH ×4 (06:10→20:25)
[2020-02-13] MEDS ORDERED: CLOP75TA14 PO (07:27)
[2020-02-13] MEDS ORDERED: PRAS10TA6 PO (07:28)
[2020-02-13] MEDS: SODIUM CHLORIDE 0.9% 1000ML 1,000 ML IV SCH ×2 (07:43→20:24)
[2020-02-13] MEDS: ASPIRIN 81MG TAB.CHEW PO SCH (07:44)
[2020-02-13] MEDS: MULTIVITAMIN TABLET PO SCH (07:45)
[2020-02-13] MEDS: GABAPENTIN 100 MG CAPSULE PO SCH ×2 (07:45→20:24)
[2020-02-13] MEDS: THIAMINE HCL 100 MG TABLET PO SCH (07:45)
[2020-02-13] MEDS: CARVEDILOL 6.25 MG TABLET PO SCH ×2 (07:52→20:22)
--- NOTE | 2020-02-13 07:57 | NUR ---
BETA EZEQUIEL carvedilol 6.25 mg held due to heart rate 48
[2020-02-13 08:00] VITALS: BP 158/57
[2020-02-13] MEDS ORDERED: CLOPIDOGREL BISULFATE 75 MG TAB PO SCH (09:00)
[2020-02-13] MEDS: LISINOPRIL 5 MG TABLET PO SCH (09:00)
[2020-02-13] MEDS ORDERED: ASPIRIN 81MG TAB.CHEW PO SCH (09:00)
[2020-02-13] MEDS ORDERED: PRASUGREL HCL 10 MG TABLET PO SCH (09:00)
[2020-02-13 12:15] VITALS: BP 143/45
--- NOTE | 2020-02-13 14:55 | NUR ---
DYSPHAGIA EVAL COMPLETED. NO S/S OF ASPIRATION AT THIS TIME. RECOMMEND REGULAR SOLIDS, THIN LIQUIDS, AND PILLS WHOLE WITH LIQUIDS TOLERATED. STEWARD/STEWARDESS CHIEF CARGO VESSEL EDUCATED Pt ON RISKS AND CONSEQUENCES OF ASPIRATION. ALL QUESTIONS ANSWERED AT THIS TIME. STEWARD/STEWARDESS CHIEF CARGO VESSEL COORDINATED WITH NURSE MORRELL. Addendum: 02/13/[address]EE SIEGEL Amended: Links added.
[2020-02-13 17:11] VITALS: BP 136/59
[2020-02-13 20:08] VITALS: BP 110/48
[2020-02-13] MEDS: ATORVASTATIN CALCIUM 40 MG TABLET PO SCH (20:24)
[2020-02-13] MEDS: CLOPIDOGREL BISULFATE 75 MG TAB PO SCH (20:24)
[2020-02-13] MEDS: PRASUGREL HCL 10 MG TABLET PO SCH (20:25)
[2020-02-13 23:45] VITALS: BP 150/46
[2020-02-14] VITALS (7 sets, daily range): BP systolic 125–158; BP diastolic 41–75
[2020-02-14] MEDS: INSULIN HUMULIN R 100 UNIT/ML 3ML SQ SCH ×3 (05:07→21:00)
[2020-02-14 06:01] LABS: BASOPHILS % (AUTO) 0.6 % (0.0-5.0); EOSINOPHILS % (AUTO) 12.8 % (0.0-8.0); HEMATOCRIT 40.2 % (42-54); LYMPHOCYTES % (AUTO) 32.6 % (21.0-51.0); MEAN CORPUSCULAR HGB CONC 31.3 g/dL (32.0-36.0); MEAN CORPUSCULAR VOLUME 92.6 fL (79-99); MONOCYTES % (AUTO) 9.1 % (3.0-13.0); NEUTROPHILS % (AUTO) 44.7 % (40.0-77.0); PLATELET COUNT (AUTO) 379 K/uL (130-400); RED BLOOD CELL COUNT(AUTO) 4.34 MIL/uL (4.50-6.20); WHITE BLOOD COUNT (AUTO) 11.8 K/uL (4.8-10.8)
[2020-02-14 06:23] LABS: CREATININE 1.1 mg/dL (0.5-1.5); POTASSIUM 5.3 mmol/L (3.5-5.1)
[2020-02-14] MEDS: THIAMINE HCL 100 MG TABLET PO SCH (09:07)
[2020-02-14] MEDS: GABAPENTIN 100 MG CAPSULE PO SCH ×2 (09:07→20:08)
[2020-02-14] MEDS: MULTIVITAMIN TABLET PO SCH (09:07)
[2020-02-14] MEDS: LISINOPRIL 5 MG TABLET PO SCH (09:08)
[2020-02-14] MEDS: ASPIRIN 81MG TAB.CHEW PO SCH (09:12)
--- NOTE | 2020-02-14 12:30 | NUR ---
FOLLOW UP COMPLETED. Pt SEATED AT EDGE OF BEAD PARTICIPATING IN P.O. AT THIS TIME. Pt TOLERATING CURRENT DIET OF REGULAR TEXTURE, THIN LIQUIDS WITH NO OVERT S/S OF ASPIRATION. Pt PARTICIPATING IN SELF-FEEDING INDEPENDENTLY. SKILLED SPEECH THERAPY IS NOT WARRANTED AT THIS TIME. Addendum: 02/14/20 at 1416 by TASNEEM SERRATO, [facility] Amended: Links added.
--- NOTE | 2020-02-14 16:56 | NUR ---
DC HOME WHEN CLEARED BY NARRO- NEED INPUT ON ANTIPLATLELET/ANTICOAGS Addendum: 02/14/20 at 1657 by MAUREEN SHEFFIELD RN CM Amended: Links added.
[2020-02-14] MEDS: PRASUGREL HCL 10 MG TABLET PO SCH (20:07)
[2020-02-14] MEDS: ATORVASTATIN CALCIUM 40 MG TABLET PO SCH (20:08)
[2020-02-14] MEDS: SODIUM CHLORIDE 0.9% 1000ML 1,000 ML IV SCH (20:08)
[2020-02-14] MEDS: CLOPIDOGREL BISULFATE 75 MG TAB PO SCH (20:08)
[2020-02-15 03:57] VITALS: BP 144/57
[2020-02-15 04:25] LABS: BASOPHILS % (AUTO) 0.7 % (0.0-5.0); HEMATOCRIT 38.2 % (42-54); LYMPHOCYTES % (AUTO) 33.5 % (21.0-51.0); MEAN CORPUSCULAR HEMOGLOBIN 28.9 pg (27.0-33.0); MEAN CORPUSCULAR HGB CONC 31.7 g/dL (32.0-36.0); MEAN CORPUSCULAR VOLUME 91.4 fL (79-99); MONOCYTES % (AUTO) 8.2 % (3.0-13.0); NEUTROPHILS % (AUTO) 42.4 % (40.0-77.0); PLATELET COUNT (AUTO) 369 K/uL (130-400); RED BLOOD CELL COUNT(AUTO) 4.18 MIL/uL (4.50-6.20); RED CELL DISTRIBUTION WIDTH 12.9 % (11.0-15.5); WHITE BLOOD COUNT (AUTO) 9.1 K/uL (4.8-10.8)
[2020-02-15] MEDS: INSULIN HUMULIN R 100 UNIT/ML 3ML SQ SCH ×4 (05:29→20:52)
--- NOTE | 2020-02-15 05:31 | NUR ---
STATUS Pt aao x 3,denies any pain or discomfort.Slept fairly well.
[2020-02-15 08:00] VITALS: BP 169/59
[2020-02-15] MEDS: THIAMINE HCL 100 MG TABLET PO SCH (08:29)
[2020-02-15] MEDS: ASPIRIN 81MG TAB.CHEW PO SCH (08:29)
[2020-02-15] MEDS: MULTIVITAMIN TABLET PO SCH (08:29)
[2020-02-15] MEDS: LISINOPRIL 5 MG TABLET PO SCH (08:30)
[2020-02-15] MEDS: GABAPENTIN 100 MG CAPSULE PO SCH ×2 (08:30→20:54)
--- NOTE | 2020-02-15 09:42 | NUR ---
DR. YANG HERE . AND REVIEW THE NEURO. CONSULTATION . AND SPOKE . ASLO WITH DANIEL Lee
--- NOTE | 2020-02-15 10:30 | NUR ---
staff at the bedside for the 2 d echo
[2020-02-15 12:06] VITALS: BP 170/52
[2020-02-15 16:00] VITALS: BP 133/51
[2020-02-15 19:00] VITALS: BP 135/47
[2020-02-15] MEDS: CLOPIDOGREL BISULFATE 75 MG TAB PO SCH (20:54)
[2020-02-15] MEDS: PRASUGREL HCL 10 MG TABLET PO SCH (20:54)
[2020-02-15] MEDS: ATORVASTATIN CALCIUM 40 MG TABLET PO SCH (20:55)
[2020-02-15] MEDS: ACETAMINOPHEN-CODEINE 300/30MG TAB PO PRN (21:02)
[2020-02-15 23:15] VITALS: BP 193/79
[2020-02-16] VITALS (7 sets, daily range): BP systolic 95–146; BP diastolic 29–68
[2020-02-16] MEDS: INSULIN HUMULIN R 100 UNIT/ML 3ML SQ SCH ×4 (06:35→20:58)
[2020-02-16] MEDS: MULTIVITAMIN TABLET PO SCH (10:20)
[2020-02-16] MEDS: GABAPENTIN 100 MG CAPSULE PO SCH ×2 (10:20→19:49)
[2020-02-16] MEDS: ASPIRIN 81MG TAB.CHEW PO SCH (10:21)
[2020-02-16] MEDS: LISINOPRIL 5 MG TABLET PO SCH (10:24)
[2020-02-16] MEDS: THIAMINE HCL 100 MG TABLET PO SCH (10:24)
[2020-02-16 12:45] LABS: CREATININE 1.1 mg/dL (0.5-1.5); MAGNESIUM 1.8 mg/dL (1.80-2.40); POTASSIUM 4.7 mmol/L (3.5-5.1)
--- NOTE | 2020-02-16 16:10 | NUR ---
Possible outpatient f/u Left message with Dr. James and Dr. Khan asking if patient can discharge home and follow up with Dr. Ramirez as an outpatient. Pending response. CD
[2020-02-16] MEDS: PRASUGREL HCL 10 MG TABLET PO SCH (19:49)
[2020-02-16] MEDS: ATORVASTATIN CALCIUM 40 MG TABLET PO SCH (19:49)
[2020-02-16] MEDS: CLOPIDOGREL BISULFATE 75 MG TAB PO SCH (19:49)
--- NOTE | 2020-02-16 20:00 | NUR ---
ASSESSMENT PATIENT AWAKE, ALERT, OX3, NO SOB, NO C/O Pain at this time, NUMBNESS TO RIGHT PARTIAL HAND IMPROVING, TEACH PLAN OF CARE AND EXPECTED OUTCOME, PATIENT VERBALIZES UNDERSTANDING VIA TEACH BACK
[2020-02-17 00:11] VITALS: BP 133/42
[2020-02-17 04:00] VITALS: BP 144/49
[2020-02-17] MEDS: INSULIN HUMULIN R 100 UNIT/ML 3ML SQ SCH ×2 (06:31→11:30)
[2020-02-17 08:00] VITALS: BP 135/78
[2020-02-17] MEDS: LISINOPRIL 5 MG TABLET PO SCH (09:11)
[2020-02-17] MEDS: ASPIRIN 81MG TAB.CHEW PO SCH (09:11)
[2020-02-17] MEDS: GABAPENTIN 100 MG CAPSULE PO SCH (09:11)
[2020-02-17] MEDS: THIAMINE HCL 100 MG TABLET PO SCH (09:12)
[2020-02-17] MEDS: MULTIVITAMIN TABLET PO SCH (09:12)
[2020-02-17 11:00] VITALS: BP 163/52
--- NOTE | 2020-02-17 14:57 | NUR ---
DISCUSSED PELON ASHER. READY FOR DC? PT NOTES REVIEWED 150 FT CONTACT GUARD ASSIT. CAN FOLLOW UP W PMD. WILL FOLLOW Addendum: 02/17/20 at 1459 by MAUREEN SHEFFIELD RN CM Amended: Links added.
--- NOTE | 2020-02-17 18:15 | NUR ---
DISCHARGE PATIENT GIVEN DISCHARGE INSTRUCTIONS VIA TEACH BACK. 18G PIV TO CAMELIA DISCONTINUED, TIP INTACT. TELE PACK REMOVED. PATIENT TO FOLLOW UP WITH DR. CARVER AND DR. MOFFETT. PATIENT TO FOLLOW UP WITH PCP FOR REFERRALS. PATIENT STABLE AT THIS TIME. PATIENT WHEELED TO ER LOBBY FOR DISCHARGE.
== END 2020-02-17 18:40 | disposition home or self-care (01) | DRG 69 ==
LOC: EDH 22:10 → OBSVTOIN 02-12 01:26 → EDHIP 02-12 01:26 → 3BH 02-12 02:53
PROVIDERS: ADMIT Internal Medicine; ATTEND Internal Medicine
DX: I67.82 Cerebral ischemia (principal); I50.22 Chronic systolic (congestive) heart failure; I25.10 Atherosclerotic heart disease of native coronary artery without angina pectoris; E87.5 Hyperkalemia; I11.0 Hypertensive heart disease with heart failure; R00.1 Bradycardia, unspecified; E78.5 Hyperlipidemia, unspecified; E11.42 Type 2 diabetes mellitus with diabetic polyneuropathy; M48.02 Spinal stenosis, cervical region; Z20.828 Contact with and (suspected) exposure to other viral communicable diseases; Z83.3 Family history of diabetes mellitus; Z95.5 Presence of coronary angioplasty implant and graft; Z82.49 Family history of ischemic heart disease and other diseases of the circulatory system; Z90.49 Acquired absence of other specified parts of digestive tract; I69.30 Unspecified sequelae of cerebral infarction; Z98.1 Arthrodesis status
CPT/HCPCS: 36415; 70450; 70551; 71045; 72131; 72141; 80048; 80053; 80061; 80305; 81001; 82607; 82948; 83735; 84132; 84443; 84484; 85025; 85027; 85610; 85730; 86592; 87426; 92610; 93005; 93970; 97039; C8924; G0378; J0610; J1815; J3490; J7030; U0003

== ENCOUNTER 2020-06-08 02:27 | Emergency (ER) | payer OTHER ==
[~2020-06-08 02:27] MED LIST changes: +ATOR-2 PO; -ATOR40TA69 PO; +EZET10TA48 PO; +GABA300C PO; -LISI-617 PO; +LISI10TA7 PO; +METF-444 PO; -PRAS10TA6 PO
== END 2020-06-08 03:57 | disposition home or self-care (01) ==
LOC: EDH 02:27
DX: M79.652 Pain in left thigh (principal); E11.9 Type 2 diabetes mellitus without complications; E78.5 Hyperlipidemia, unspecified; I10 Essential (primary) hypertension; Z90.49 Acquired absence of other specified parts of digestive tract
CPT/HCPCS: 93971

== ENCOUNTER → 2020-08-24 | Outpatient (CLI) | payer OTHER ==
[~2020-08-24] MED LIST changes: +LISI10TA24 PO; -LISI10TA7 PO
== END | disposition home or self-care (01) ==
LOC: RAH 10:25
PROVIDERS: ATTEND Podiatrist
DX: E11.51 Type 2 diabetes mellitus with diabetic peripheral angiopathy without gangrene (principal); L60.0 Ingrowing nail; I70.213 Atherosclerosis of native arteries of extremities with intermittent claudication, bilateral legs; B35.1 Tinea unguium
CPT/HCPCS: 93922

== ENCOUNTER → 2020-10-19 | Outpatient (CLI) | payer OTHER ==
[~2020-10-19] MED LIST changes: +IOHEXOL 350 MG/ML 100ML INFUS..BTL IV ONE; +IOHEXOL-350 50ML VIAL IV ONE
== END | disposition home or self-care (01) ==
LOC: RAH 09:13
PROVIDERS: ATTEND Internal Medicine Cardiovascular Disease
DX: I70.0 Atherosclerosis of aorta (principal); I70.293 Other atherosclerosis of native arteries of extremities, bilateral legs
CPT/HCPCS: 75635; Q9967 ×2

== ENCOUNTER → 2020-12-15 | Outpatient (CLI) | payer OTHER ==
[~2020-12-15] MED LIST changes: -IOHEXOL 350 MG/ML 100ML INFUS..BTL IV ONE; -IOHEXOL-350 50ML VIAL IV ONE
== END | disposition home or self-care (01) ==
LOC: RAH 15:49
PROVIDERS: ATTEND Internal Medicine Cardiovascular Disease
DX: I72.4 Aneurysm of artery of lower extremity (principal); M79.661 Pain in right lower leg; M79.662 Pain in left lower leg
CPT/HCPCS: 76882

== ENCOUNTER 2022-09-18 09:31 | Emergency (ER) | payer OTHER ==
[~2022-09-18] VITALS: Ht 165.1 cm; Wt 78.5 kg
[~2022-09-18 09:31] MED LIST changes: -CARV6.2579 PO; +CLOP-31 PO; -CLOP75TA14 PO; -GABA300C PO; -LISI10TA24 PO; +LISI20TA24 PO
[2022-09-18 10:19] LABS: BASOPHILS % (AUTO) 0.5 % (0.0-5.0); EOSINOPHILS % (AUTO) 7.9 % (0.0-8.0); HEMATOCRIT 44.8 % (42-54); LYMPHOCYTES % (AUTO) 24.1 % (21.0-51.0); MEAN CORPUSCULAR HEMOGLOBIN 29.8 pg (27.0-33.0); MEAN CORPUSCULAR HGB CONC 31.5 g/dL (32.0-36.0); MEAN CORPUSCULAR VOLUME 94.7 fL (79-99); MONOCYTES % (AUTO) 9.6 % (3.0-13.0); NEUTROPHILS % (AUTO) 57.6 % (40.0-77.0); PLATELET COUNT (AUTO) 387 K/uL (130-400); RED BLOOD CELL COUNT(AUTO) 4.73 MIL/uL (4.50-6.20); RED CELL DISTRIBUTION WIDTH 13.2 % (11.0-15.5); WHITE BLOOD COUNT (AUTO) 10.6 K/uL (4.8-10.8)
[2022-09-18 10:28] LABS: CREATININE 1.1 mg/dL (0.5-1.5); POTASSIUM 5.1 mmol/L (3.5-5.1)
[2022-09-18 10:30] LABS: INR 0.93 (0.85-1.15); PROTHROMBIN TIME 10.1 SEC (9.6-11.6)
[2022-09-18 10:32] LABS: PARTIAL THROMBOPLASTIN TIME 26.5 SEC (26.3-35.5)
[2022-09-18 10:33] LABS: ALBUMIN 3.3 g/dL (3.5-5.0); MAGNESIUM 1.4 mg/dL (1.80-2.40); TOTAL PROTEIN, SERUM 6.9 g/dL (6.0-8.3)
[2022-09-18] MEDS ORDERED: MAGNESIUM 2GM PREMIX 50ML 50 ML IV SCH (11:00)
[2022-09-18] MEDS ORDERED: ACETAMINOPHEN 500 MG TABLET PO ONE (13:00)
[2022-09-18 13:25] VITALS: BP 167/66
== END 2022-09-18 13:28 | disposition home or self-care (01) ==
LOC: EDH 09:31
DX: I10 Essential (primary) hypertension (principal); R51.9 Headache, unspecified; E11.59 Type 2 diabetes mellitus with other circulatory complications; E78.00 Pure hypercholesterolemia, unspecified; Z79.899 Other long term (current) drug therapy; Z79.82 Long term (current) use of aspirin; Z79.84 Long term (current) use of oral hypoglycemic drugs; Z90.49 Acquired absence of other specified parts of digestive tract; Z86.73 Personal history of transient ischemic attack (TIA), and cerebral infarction without residual deficits; Z95.1 Presence of aortocoronary bypass graft; Z98.890 Other specified postprocedural states
CPT/HCPCS: 99284; 96365; 83735; 84484; 80053; 85025; 85610; 85730; 36415; 93005; J3475

== ENCOUNTER 2023-09-30 20:28 | Emergency (ER) | payer OTHER ==
[~2023-09-30 20:28] MED LIST changes: +AEC81 PO; +AMLO5TAB4 PO; -ASPI-1005 PO; +GABA-534 PO
[2023-09-30] MEDS: HYDROXYZINE 25 MG TABLET PO ONE (21:20)
[2023-09-30 23:09] VITALS: BP 153/57; PULSE 50; RESP 17; O2SAT 97
[2023-10-01] MEDS ORDERED: MELO-106 PO (00:21)
[2023-10-01] MEDS ORDERED: CYCL10TA16 PO (00:21)
[2023-10-01] MEDS ORDERED: HYDR50CA50 PO (00:22)
== END 2023-10-01 00:40 | disposition home or self-care (01) ==
LOC: EDH 20:28
DX: M47.812 Spondylosis without myelopathy or radiculopathy, cervical region (principal); F41.9 Anxiety disorder, unspecified; F17.200 Nicotine dependence, unspecified, uncomplicated; Z79.02 Long term (current) use of antithrombotics/antiplatelets; Z79.82 Long term (current) use of aspirin; Z79.84 Long term (current) use of oral hypoglycemic drugs; Z79.899 Other long term (current) drug therapy; Z90.49 Acquired absence of other specified parts of digestive tract; Z95.1 Presence of aortocoronary bypass graft
CPT/HCPCS: 72040; 93005

== ENCOUNTER 2023-10-16 19:28 | Inpatient (IN) | payer OTHER ==
[~2023-10-16] VITALS: Ht 165.1 cm; Wt 75.7 kg
[~2023-10-16 19:28] MED LIST changes: +CYCL10TA16 PO; +HYDR50CA50 PO; +MELO-106 PO
[2023-10-16] MEDS ORDERED: IOHEXOL 350 MG/ML 100ML INFUS..BTL IV ONE (20:18)
[2023-10-16] MEDS ORDERED: IOHEXOL-350 50ML VIAL IV ONE (20:18)
[2023-10-16] MEDS: HYDROMORPHONE 1 MG INJ ONE (20:34)
[2023-10-16] MEDS: HYDROMORPHONE 1 MG INJ IVP ONE (20:34)
[2023-10-16] MEDS: NICARDIPINE 25MG INJ IV ONE (20:52)
[2023-10-16] MEDS: HEPARIN 5,000 UNIT VIAL IV ONE (20:53)
[2023-10-16] MEDS: HEPARIN 25,000 UNITS/250ML D5W 250 ML IV STA (20:57)
[2023-10-16 21:04] LABS: BASOPHILS % (AUTO) 0.5 % (0.0-5.0); EOSINOPHILS # (AUTO) 0.62 K/uL (0.00-0.70); EOSINOPHILS % (AUTO) 3.3 % (0.0-8.0); HEMATOCRIT 44.4 % (42-54); IMMATURE GRANULOCYTE ABSOLUTE 0.09 K/uL (0-1); LYMPHOCYTES # (AUTO) 2.1 K/uL (1.0-4.8); LYMPHOCYTES % (AUTO) 11.2 % (21.0-51.0); MEAN CORPUSCULAR HGB CONC 32.7 g/dL (32.0-36.0); MEAN CORPUSCULAR VOLUME 91.9 fL (79-99); MONOCYTES # (AUTO) 1.3 K/uL (0.1-1.0); MONOCYTES % (AUTO) 6.8 % (3.0-13.0); NEUTROPHILS # (AUTO) 14.6 K/uL (1.8-7.7); NEUTROPHILS % (AUTO) 77.7 % (40.0-77.0); PLATELET COUNT (AUTO) 351 K/uL (130-400); RED BLOOD CELL COUNT(AUTO) 4.83 MIL/uL (4.50-6.20); RED CELL DISTRIBUTION WIDTH 13.2 % (11.0-15.5); WHITE BLOOD COUNT (AUTO) 18.8 K/uL (4.8-10.8)
[2023-10-16 21:15] LABS: CREATININE 1.2 mg/dL (0.5-1.3); POTASSIUM 4.5 mmol/L (3.5-5.1)
[2023-10-16 21:17] LABS: INR <= 0.93 (0.85-1.15); PROTHROMBIN TIME 10.9 SEC (9.6-11.6)
[2023-10-16 21:19] LABS: ALBUMIN 3.7 g/dL (3.5-5.0); BILIRUBIN,TOTAL 0.3 mg/dL (0.2-1.0); PARTIAL THROMBOPLASTIN TIME 27.5 SEC (26.3-35.5); TOTAL PROTEIN, SERUM 7.6 g/dL (6.0-8.3)
[2023-10-16] MEDS ORDERED: HEPARIN 5,000 UNIT VIAL IV PRN (21:30)
[2023-10-16 21:32] LABS: B-TYPE NATRIURETIC PEPTIDE 52 pg/mL (0-100)
[2023-10-16] MEDS ORDERED: LIDOCAINE HCL 400MG/20ML VIAL ONE (21:37)
[2023-10-16] MEDS ORDERED: NICARDIPINE 25MG INJ IV ONE ×2 (21:38→22:57)
[2023-10-16] MEDS ORDERED: MIDAZOLAM HCL 1 MG/ML 2ML VIAL ONE (21:38)
[2023-10-16] MEDS ORDERED: IODIXANOL 320 MG/ML 100 ML VIAL ONE (21:38)
[2023-10-16] MEDS ORDERED: FENTANYL CITRATE PF 50 MCG/1 ML 2ML VIAL ONE (21:38)
[2023-10-16] MEDS ORDERED: NITROGLYCERIN 50MG VIAL ONE (21:42)
[2023-10-16] MEDS ORDERED: LABETALOL 20MG SYG IV ONE (22:12)
[2023-10-16] MEDS ORDERED: DEXTROSE 50%-WATER 50 ML DISP.SYRIN IV PRN ×2 (23:00→23:30)
[2023-10-16] MEDS ORDERED: MAGNESIUM 2GM PREMIX 50ML 50 ML IV PRN (23:00)
[2023-10-16] MEDS ORDERED: POTASSIUM CHLORIDE 20MEQ/100ML 100 ML IV PRN ×2 (23:00)
[2023-10-16] MEDS ORDERED: POTASSIUM CHLORIDE 10% ELIXIR 20 MEQ/15 ML UDCUP PO PRN (23:00)
[2023-10-16] MEDS ORDERED: GLUCAGON 1MG KIT 1 MG ML IM PRN ×2 (23:00→23:30)
[2023-10-17] VITALS (63 sets, daily range): BP systolic 104–193; BP diastolic 56–109; PULSE 69–111; RESP 6–27; O2SAT 96–98
[2023-10-17] MEDS: CEFTRIAXONE 1G VIAL IV SCH (00:44)
[2023-10-17] MEDS: HYDROMORPHONE 1 MG INJ IVP STA (01:08)
[2023-10-17] MEDS: NICARDIPINE 25MG INJ IV ONE ×3 (01:34→04:27)
[2023-10-17] MEDS: NICARDIPINE 25MG INJ 25 MG in 0.9% NACL 250ML 240 ML IV SCH (02:06)
[2023-10-17 03:36] LABS: BASOPHILS # (AUTO) 0.04 K/uL (0.00-0.20); BASOPHILS % (AUTO) 0.3 % (0.0-5.0); EOSINOPHILS # (AUTO) 0.02 K/uL (0.00-0.70); EOSINOPHILS % (AUTO) 0.1 % (0.0-8.0); HEMATOCRIT 42.8 % (42-54); IMMATURE GRANULOCYTE ABSOLUTE 0.05 K/uL (0-1); LYMPHOCYTES # (AUTO) 1.4 K/uL (1.0-4.8); LYMPHOCYTES % (AUTO) 10.2 % (21.0-51.0); MEAN CORPUSCULAR HEMOGLOBIN 30.7 pg (27.0-33.0); MEAN CORPUSCULAR HGB CONC 33.2 g/dL (32.0-36.0); MEAN CORPUSCULAR VOLUME 92.6 fL (79-99); MONOCYTES # (AUTO) 0.7 K/uL (0.1-1.0); MONOCYTES % (AUTO) 4.9 % (3.0-13.0); NEUTROPHILS # (AUTO) 11.3 K/uL (1.8-7.7); NEUTROPHILS % (AUTO) 84.1 % (40.0-77.0); PLATELET COUNT (AUTO) 286 K/uL (130-400); RED BLOOD CELL COUNT(AUTO) 4.62 MIL/uL (4.50-6.20); RED CELL DISTRIBUTION WIDTH 13.3 % (11.0-15.5); WHITE BLOOD COUNT (AUTO) 13.4 K/uL (4.8-10.8)
[2023-10-17] MEDS: 0.9%NACL 1000ML 1,000 ML IV SCH ×2 (03:42→18:46)
[2023-10-17] MEDS: HEPARIN 25,000 UNITS/250ML D5W 250 ML IV SCH (03:47)
[2023-10-17] MEDS: HYDROMORPHONE 0.5 MG SYG (0.5MG/0.5ML) IVP PRN (04:30)
[2023-10-17 04:44] LABS: MAGNESIUM 1.6 mg/dL (1.80-2.40); POTASSIUM 5.5 mmol/L (3.5-5.1)
[2023-10-17] MEDS: INSULIN HUMULIN R 100 UNIT/ML 3ML SQ SCH (06:30)
[2023-10-17] MEDS ORDERED: LIDOCAINE HCL 400MG/20ML VIAL ONE (07:39)
[2023-10-17] MEDS ORDERED: IODIXANOL 320 MG/ML 100 ML VIAL ONE (07:40)
[2023-10-17] MEDS ORDERED: MIDAZOLAM HCL 1 MG/ML 2ML VIAL ONE ×2 (07:40→08:33)
[2023-10-17] MEDS ORDERED: FENTANYL CITRATE PF 50 MCG/1 ML 2ML VIAL ONE (07:40)
[2023-10-17] MEDS ORDERED: NITROGLYCERIN 50MG VIAL ONE (07:41)
[2023-10-17] MEDS ORDERED: HEPARIN 10,000 UNIT/10ML (1,000 UNIT/ML) VIAL ONE (08:08)
[2023-10-17] MEDS: ASPIRIN 81 MG EC TAB PO SCH (09:00)
[2023-10-17] MEDS ORDERED: CLOPIDOGREL 300MG TAB ONE (09:05)
[2023-10-17] MEDS ORDERED: ASPIRIN 325MG EC TAB PO ONE (09:05)
[2023-10-17] MEDS ORDERED: 0.9%NACL 1000ML 1,000 ML IV SCH (09:30)
[2023-10-17] MEDS: 0.9%NACL 1000ML 1,000 ML IV ONE (09:41)
[2023-10-17] MEDS: METOPROLOL TARTRATE 25 MG TAB PO SCH ×2 (09:46→20:14)
[2023-10-17] MEDS: FAMOTIDINE 20MG VIAL IV SCH (09:46)
[2023-10-17] MEDS ORDERED: HYDROMORPHONE 0.5 MG SYG (0.5MG/0.5ML) IVP PRN (14:00)
[2023-10-17] MEDS: HYDROCODONE/ACETAMINOPHEN 5/325 MG TAB PO PRN (15:18)
[2023-10-17] MEDS: HYDRALAZINE 20MG/ML VIAL IV ONE (15:48)
[2023-10-17] MEDS ORDERED: LORAZEPAM 2 MG/ML 1 ML VIAL IVP PRN (16:00)
[2023-10-17] MEDS: KAYEXALATE 15GM/60ML PO ONE (16:47)
[2023-10-17] MEDS: ONDANSETRON 4MG INJ IV PRN (17:21)
[2023-10-17] MEDS: HYDROMORPHONE 1 MG INJ IVP PRN (17:28)
[2023-10-17] MEDS: SODIUM BICARB 8.4% 50ML SYRING 150 MEQ in DEXTROSE 5%-WATER 1,000 ML IVP SCH (19:11)
[2023-10-17] MEDS: ATORVASTATIN 20 MG TABLET PO SCH (20:14)
[2023-10-17 20:54] LABS: APPEARANCE,URINE CLEAR (CLEAR); BILIRUBIN,URINE NEGATIVE (NEGATIVE); COLOR,URINE COLORLESS (YELLOW); GLUCOSE, URINE (UA) NEGATIVE (NEGATIVE); KETONES,URINE NEGATIVE (NEGATIVE); LEUKOCYTE ESTERASE ,URINE NEGATIVE Leu/uL (NEGATIVE); NITRATE,URINE NEGATIVE (NEGATIVE); OCCULT BLOOD,URINE LARGE (NEGATIVE); PROTEIN,URINE 300 mg/dL (NEGATIVE); UROBILINOGEN,URINE 0.2 mg/dL (0.2-1.0)
[2023-10-17 20:58] LABS: ADD UA MICROSCOPIC YES
[2023-10-17 21:09] LABS: CREATININE 1.2 mg/dL (0.5-1.3); POTASSIUM 4.6 mmol/L (3.5-5.1)
[2023-10-17 21:09] LABS: BACTERIA,URINE RARE /HPF (None Seen); RBC,URINE 0-1 /HPF (0-1); SQUAMOUS EPITHELIAL CELL,UR RARE /HPF (0-2)
[2023-10-17] MEDS: CHLORDIAZEPOXIDE HCL 25 MG CAP PO PRN (22:06)
[2023-10-18] VITALS (54 sets, daily range): BP systolic 113–202; BP diastolic 46–102; PULSE 62–97; RESP 10–29; O2SAT 93–98
[2023-10-18] MEDS: NICARDIPINE 25MG INJ IV ONE ×2 (03:22→22:26)
[2023-10-18 05:14] LABS: BASOPHILS # (AUTO) 0.04 K/uL (0.00-0.20); BASOPHILS % (AUTO) 0.3 % (0.0-5.0); EOSINOPHILS # (AUTO) 0.24 K/uL (0.00-0.70); EOSINOPHILS % (AUTO) 1.9 % (0.0-8.0); HEMATOCRIT 41.1 % (42-54); IMMATURE GRANULOCYTE ABSOLUTE 0.05 K/uL (0-1); LYMPHOCYTES # (AUTO) 2.1 K/uL (1.0-4.8); LYMPHOCYTES % (AUTO) 16.3 % (21.0-51.0); MEAN CORPUSCULAR HGB CONC 32.1 g/dL (32.0-36.0); MEAN CORPUSCULAR VOLUME 93.4 fL (79-99); MONOCYTES # (AUTO) 1.6 K/uL (0.1-1.0); NEUTROPHILS # (AUTO) 8.6 K/uL (1.8-7.7); NEUTROPHILS % (AUTO) 68.1 % (40.0-77.0); PLATELET COUNT (AUTO) 279 K/uL (130-400); RED CELL DISTRIBUTION WIDTH 13.6 % (11.0-15.5); WHITE BLOOD COUNT (AUTO) 12.6 K/uL (4.8-10.8)
[2023-10-18 05:33] LABS: ALBUMIN 2.9 g/dL (3.5-5.0); BILIRUBIN,TOTAL 0.4 mg/dL (0.2-1.0); MAGNESIUM 1.6 mg/dL (1.80-2.40); POTASSIUM 3.7 mmol/L (3.5-5.1); TOTAL PROTEIN, SERUM 6.4 g/dL (6.0-8.3)
[2023-10-18] MEDS: MAGNESIUM 2GM PREMIX 50ML 50 ML IV SCH (06:09)
[2023-10-18] MEDS: THIAMINE HCL 100 MG/ML 2ML VIAL IVP SCH (09:00)
[2023-10-18] MEDS: CLOPIDOGREL 75MG TAB PO SCH (09:00)
[2023-10-18] MEDS: M.V.I. IV [ADULT] 10 ML, FOLIC ACID 1 MG, THIAMINE HCL 100 MG in 0.9%NACL 1000ML 1,000 ML IV SCH (09:00)
[2023-10-18] MEDS ORDERED: ROPIVACAINE 0.5% 5MG/ML 30ML ONE (09:15)
[2023-10-18] MEDS ORDERED: PROPOFOL 10 MG/ML 20ML VIAL IV ONE (09:16)
[2023-10-18] MEDS ORDERED: FENTANYL CITRATE PF 50 MCG/1 ML 2ML VIAL ONE (09:17)
[2023-10-18] MEDS ORDERED: SUCCINYLCHOLINE CHLORIDE 20 MG/ML 10 ML VIAL ONE (09:17)
[2023-10-18] MEDS ORDERED: ROCURONIUM BROMIDE 10MG/1ML 5ML VL ONE (09:17)
[2023-10-18] MEDS ORDERED: GLYCOPYRROLATE 0.2 MG/ML 5 ML VIAL ONE (10:12)
[2023-10-18] MEDS: SODIUM BICARB 150 MEQ in DEXTROSE 5%-WATER 1,000 ML IVP SCH (12:33)
[2023-10-18] MEDS ORDERED: COMPOUND IV REFRIGERATED 1 EACH IVSOLN MISC PRN (13:00)
[2023-10-18] MEDS: CLONIDINE HCL 0.1 MG TABLET PO PRN (21:09)
[2023-10-19] VITALS (39 sets, daily range): BP systolic 124–170; BP diastolic 38–112; PULSE 60–87; RESP 5–26; O2SAT 93–98
[2023-10-19] MEDS: NICARDIPINE 25MG INJ IV ONE ×2 (01:25→04:33)
[2023-10-19 04:04] LABS: BASOPHILS # (AUTO) 0.05 K/uL (0.00-0.20); BASOPHILS % (AUTO) 0.4 % (0.0-5.0); EOSINOPHILS # (AUTO) 0.25 K/uL (0.00-0.70); EOSINOPHILS % (AUTO) 2.2 % (0.0-8.0); HEMATOCRIT 37.9 % (42-54); IMMATURE GRANULOCYTE ABSOLUTE 0.04 K/uL (0-1); LYMPHOCYTES # (AUTO) 1.7 K/uL (1.0-4.8); LYMPHOCYTES % (AUTO) 15.5 % (21.0-51.0); MEAN CORPUSCULAR HEMOGLOBIN 29.6 pg (27.0-33.0); MEAN CORPUSCULAR HGB CONC 31.9 g/dL (32.0-36.0); MEAN CORPUSCULAR VOLUME 92.7 fL (79-99); MONOCYTES # (AUTO) 1.3 K/uL (0.1-1.0); MONOCYTES % (AUTO) 11.5 % (3.0-13.0); NEUTROPHILS # (AUTO) 7.9 K/uL (1.8-7.7); PLATELET COUNT (AUTO) 215 K/uL (130-400); RED BLOOD CELL COUNT(AUTO) 4.09 MIL/uL (4.50-6.20); RED CELL DISTRIBUTION WIDTH 13.3 % (11.0-15.5); WHITE BLOOD COUNT (AUTO) 11.3 K/uL (4.8-10.8)
[2023-10-19 04:37] LABS: ALBUMIN 2.4 g/dL (3.5-5.0); BILIRUBIN,TOTAL 0.4 mg/dL (0.2-1.0); MAGNESIUM 1.5 mg/dL (1.80-2.40); POTASSIUM 3.6 mmol/L (3.5-5.1); TOTAL PROTEIN, SERUM 5.9 g/dL (6.0-8.3)
[2023-10-19] MEDS ORDERED: MAGNESIUM 2GM PREMIX 50ML 50 ML IV SCH (09:30)
[2023-10-19] MEDS ORDERED: ALPRAZOLAM 0.25 MG TABLET PO PRN (10:30)
[2023-10-19] MEDS: AMLODIPINE 5 MG TAB PO SCH (11:15)
[2023-10-19] MEDS: NICOTINE 14 MG/ 24 HR PATCH TD SCH (11:15)
[2023-10-20] VITALS (10 sets, daily range): BP systolic 148–203; BP diastolic 64–99; PULSE 57–78; RESP 12–25; O2SAT 95–97
[2023-10-20 04:26] LABS: BASOPHILS # (AUTO) 0.07 K/uL (0.00-0.20); BASOPHILS % (AUTO) 0.6 % (0.0-5.0); EOSINOPHILS # (AUTO) 0.69 K/uL (0.00-0.70); EOSINOPHILS % (AUTO) 5.7 % (0.0-8.0); HEMATOCRIT 37.5 % (42-54); IMMATURE GRANULOCYTE ABSOLUTE 0.05 K/uL (0-1); LYMPHOCYTES % (AUTO) 16.2 % (21.0-51.0); MEAN CORPUSCULAR HEMOGLOBIN 30.5 pg (27.0-33.0); MEAN CORPUSCULAR VOLUME 95.4 fL (79-99); MONOCYTES # (AUTO) 1.3 K/uL (0.1-1.0); NEUTROPHILS # (AUTO) 7.9 K/uL (1.8-7.7); NEUTROPHILS % (AUTO) 66.1 % (40.0-77.0); PLATELET COUNT (AUTO) 266 K/uL (130-400); RED BLOOD CELL COUNT(AUTO) 3.93 MIL/uL (4.50-6.20)
[2023-10-20 05:32] LABS: ALBUMIN 2.2 g/dL (3.5-5.0); BILIRUBIN,TOTAL 0.4 mg/dL (0.2-1.0); CREATININE 0.8 mg/dL (0.5-1.3); MAGNESIUM 1.7 mg/dL (1.80-2.40); POTASSIUM 3.6 mmol/L (3.5-5.1); TOTAL PROTEIN, SERUM 6.1 g/dL (6.0-8.3)
[2023-10-20] MEDS: KCL 20 MEQ ERTAB PO PRN (05:56)
[2023-10-20] MEDS: METOPROLOL TARTRATE 50 MG TAB PO SCH (09:00)
[2023-10-20] MEDS ORDERED: AMLODIPINE 5 MG TAB PO SCH (09:00)
[2023-10-20] MEDS: FUROSEMIDE 20MG VIAL IV ONE (11:19)
[2023-10-20] MEDS: FUROSEMIDE 20MG VIAL ONE (11:19)
[2023-10-20] MEDS: TELMISARTAN/HYDROCHLOROTHIAZID 80/12.5 MG TAB PO SCH (11:28)
[2023-10-20] MEDS: CLONIDINE HCL 0.1 MG TABLET PO SCH (11:29)
[2023-10-20] MEDS: HYDRALAZINE 20MG/ML VIAL IV PRN (17:50)
[2023-10-21] VITALS (7 sets, daily range): BP systolic 115–162; BP diastolic 46–65; PULSE 51–78; RESP 18–20; O2SAT 96–99
[2023-10-21 06:16] LABS: MAGNESIUM 1.5 mg/dL (1.80-2.40); POTASSIUM 3.2 mmol/L (3.5-5.1)
[2023-10-21] MEDS ORDERED: MAGNESIUM 2GM PREMIX 50ML 50 ML IV PRN (10:30)
[2023-10-21] MEDS: GABAPENTIN 100 MG CAPSULE PO SCH (11:07)
[2023-10-22] VITALS (8 sets, daily range): BP systolic 119–163; BP diastolic 43–72; PULSE 47–74; RESP 17–19; O2SAT 96–98
[2023-10-22] MEDS: KETOROLAC 15MG/ML VIAL (15MG/ML) IM PRN (21:46)
[2023-10-23 04:00] VITALS: BP 118/55; PULSE 46; RESP 20
[2023-10-23 05:20] LABS: HEMATOCRIT 37.1 % (42-54); MEAN CORPUSCULAR HEMOGLOBIN 30.3 pg (27.0-33.0); MEAN CORPUSCULAR HGB CONC 32.6 g/dL (32.0-36.0); RED BLOOD CELL COUNT(AUTO) 3.99 MIL/uL (4.50-6.20); RED CELL DISTRIBUTION WIDTH 12.8 % (11.0-15.5); WHITE BLOOD COUNT (AUTO) 10.1 K/uL (4.8-10.8)
[2023-10-23 05:36] LABS: BILIRUBIN,TOTAL 0.3 mg/dL (0.2-1.0); TOTAL PROTEIN, SERUM 6.2 g/dL (6.0-8.3)
[2023-10-23 08:00] VITALS: BP 144/50; PULSE 51; RESP 17; O2SAT 96
[2023-10-23 12:00] VITALS: BP 147/61; PULSE 57; RESP 18
[2023-10-23] MEDS: LACTULOSE 20 GM/30 ML UDCUP PO ONE (15:13)
[2023-10-23 16:00] VITALS: BP 135/54; PULSE 45; RESP 19
[2023-10-23 20:00] VITALS: BP 148/55; PULSE 44; RESP 16
[2023-10-23] MEDS: LACTULOSE 20 GM/30 ML UDCUP PO SCH (21:26)
[2023-10-24] VITALS: BP 134/54; PULSE 50; RESP 20
[2023-10-24 04:00] VITALS: BP 128/50; PULSE 42; RESP 20
[2023-10-24 08:00] VITALS: BP 153/54; PULSE 47; RESP 20; O2SAT 98
[2023-10-24 12:00] VITALS: BP 115/51; PULSE 49; RESP 16
== END 2023-10-24 18:00 | DRG 240 ==
LOC: EDH 19:28 → EDHIP 22:32 → 2CV 23:36 → 2BH 10-17 06:23 → 3CH 10-20 13:11
PROVIDERS: ADMIT Internal Medicine; ATTEND Internal Medicine
PROC: B41D1ZZ Fluoroscopy of Aorta and Bilateral Lower Extremity Arteries using Low Osmolar Contrast (ICD-10-PCS; 2023-10-16)
PROC: 3E05317 Introduction of Other Thrombolytic into Peripheral Artery, Percutaneous Approach (ICD-10-PCS; 2023-10-16)
PROC: 04FL3ZZ Fragmentation of Left Femoral Artery, Percutaneous Approach (ICD-10-PCS; 2023-10-17)
PROC: 047L3DZ Dilation of Left Femoral Artery with Intraluminal Device, Percutaneous Approach (ICD-10-PCS; 2023-10-17)
PROC: B41G1ZZ Fluoroscopy of Left Lower Extremity Arteries using Low Osmolar Contrast (ICD-10-PCS; 2023-10-17)
PROC: 0Y6D0Z1 Detachment at Left Upper Leg, High, Open Approach (ICD-10-PCS; principal; 2023-10-18 09:20)
DX: I70.222 Atherosclerosis of native arteries of extremities with rest pain, left leg (principal); I16.1 Hypertensive emergency; I50.42 Chronic combined systolic (congestive) and diastolic (congestive) heart failure; M62.82 Rhabdomyolysis; R65.10 Systemic inflammatory response syndrome (SIRS) of non-infectious origin without acute organ dysfunction; E11.51 Type 2 diabetes mellitus with diabetic peripheral angiopathy without gangrene; D72.829 Elevated white blood cell count, unspecified; I25.10 Atherosclerotic heart disease of native coronary artery without angina pectoris; Z95.1 Presence of aortocoronary bypass graft; I11.0 Hypertensive heart disease with heart failure; E66.9 Obesity, unspecified; E78.00 Pure hypercholesterolemia, unspecified; E87.5 Hyperkalemia; F10.10 Alcohol abuse, uncomplicated; F17.210 Nicotine dependence, cigarettes, uncomplicated; J44.9 Chronic obstructive pulmonary disease, unspecified; Y83.2 Surgical operation with anastomosis, bypass or graft as the cause of abnormal reaction of the patient, or of later complication, without mention of misadventure at the time of the procedure; Z79.02 Long term (current) use of antithrombotics/antiplatelets; Z79.899 Other long term (current) drug therapy; Z82.49 Family history of ischemic heart disease and other diseases of the circulatory system; Z83.3 Family history of diabetes mellitus; Z86.73 Personal history of transient ischemic attack (TIA), and cerebral infarction without residual deficits; Z86.79 Personal history of other diseases of the circulatory system; Z90.49 Acquired absence of other specified parts of digestive tract; Z91.148 Patient's other noncompliance with medication regimen for other reason; Z91.199 Patient's noncompliance with other medical treatment and regimen due to unspecified reason; Y92.89 Other specified places as the place of occurrence of the external cause; Y71.2 Prosthetic and other implants, materials and accessory cardiovascular devices associated with adverse incidents; Z68.27 Body mass index [BMI] 27.0-27.9, adult
CPT/HCPCS: 36246; 36415; 37211; 37214; 70450; 71045; 75635; 75716; 76705; 80048; 80053; 80061; 81001; 82550; 82948; 83036; 83721; 83735; 83880; 84484; 85025; 85027; 85347; 85610; 85730; 86850; 86900; 86901; 88307; 88311; 93005; 93306; 93356; 93880; 96375; 99156; 99157; 99291; 99292; C1751; C1757; C1769; C1893; C1894; C9765; G0378; J0330; J0360; J0696; J1170; J1644; J1815; J1885; J1940; J2250; J2405; J2704; J2795; J3010; J3411; J3475; J3490; J7030; J7050; J7070; Q9967; A4649; A6219; A6223; A6446; A6450; C1725; C1876

== ENCOUNTER 2023-11-18 16:04 | Emergency (ER) | payer OTHER ==
[~2023-11-18] VITALS: Ht 165.1 cm; Wt 71.7 kg
[~2023-11-18 16:04] MED LIST changes: -ATOR-2 PO; -CYCL10TA16 PO; -HYDR50CA50 PO; -MELO-106 PO
[2023-11-18 16:20] VITALS: O2SAT 98
[2023-11-18 16:22] VITALS: BP 134/75; PULSE 97; RESP 18
== END 2023-11-18 17:35 | disposition home or self-care (01) ==
LOC: EDH 16:04
DX: S70.12XA Contusion of left thigh, initial encounter (principal); E11.9 Type 2 diabetes mellitus without complications; I10 Essential (primary) hypertension; Z90.49 Acquired absence of other specified parts of digestive tract; W18.39XA Other fall on same level, initial encounter; Y93.89 Activity, other specified; Y92.89 Other specified places as the place of occurrence of the external cause; Y99.8 Other external cause status
CPT/HCPCS: 73552

== ENCOUNTER 2023-12-14 00:01 | Emergency (ER) | payer OTHER ==
[~2023-12-14] VITALS: Ht 165.1 cm; Wt 70.3 kg
[2023-12-14] MEDS: LIDOCAINE HCL 1% 20 ML VIAL INJ STA (01:37)
[2023-12-14] MEDS: 0.9% NACL 500ML IV.SOLN 500 ML IV SCH ×2 (01:48→02:12)
[2023-12-14 02:36] VITALS: BP 152/54; PULSE 52; RESP 18; O2SAT 99
== END 2023-12-14 02:54 | disposition home or self-care (01) ==
LOC: EDH 00:01
DX: S81.812A Laceration without foreign body, left lower leg, initial encounter (principal); I10 Essential (primary) hypertension; E11.9 Type 2 diabetes mellitus without complications; E78.00 Pure hypercholesterolemia, unspecified; Z79.82 Long term (current) use of aspirin; Z79.84 Long term (current) use of oral hypoglycemic drugs; Z79.899 Other long term (current) drug therapy; Z98.890 Other specified postprocedural states; W18.39XA Other fall on same level, initial encounter; Y93.89 Activity, other specified; Y92.89 Other specified places as the place of occurrence of the external cause; Y99.8 Other external cause status
CPT/HCPCS: 99285; 73552; 12001; 93005; J7040 ×2

== ENCOUNTER → 2024-07-12 | Outpatient (CLI) | payer OTHER ==
[~2024-07-12] MED LIST changes: +ATOR-2 PO; +LOSA50TA64 PO
[2024-07-12 17:00] LABS: CREATININE 1.3 mg/dL (0.5-1.3)
== END | disposition home or self-care (01) ==
LOC: LAB 15:55
PROVIDERS: ATTEND Internal Medicine Cardiovascular Disease
DX: I73.9 Peripheral vascular disease, unspecified (principal)
CPT/HCPCS: 36415; 80048

== ENCOUNTER 2024-07-13 19:15 | Observation (INO) | payer OTHER ==
[~2024-07-13] VITALS: Ht 160 cm; Wt 77.1 kg
[~2024-07-13 19:15] MED LIST changes: -ATOR-2 PO; -LOSA50TA64 PO
--- NOTE | 2024-07-13 19:38 | ERN ---
ED Note History of Present Illness Stated Complaint: POTASSIUM HIGH Chief Complaint: Abnormal Labs Time Seen by MD: 19:17 Time Seen by Midlevel: 19:17 Dictation: The patient is a 69-year-old male with a history of hypertension, diabetes, PVD who reports to the emergency department after being sent by Dr. Garcia for elevated potassium. Patient otherwise denies any chest pain, shortness of breath, nausea or vomiting, patient denies any complaints. Patient reports he went to get labs done for a CT scan scheduled schedule for . Allergies: Coded Allergies: No Known Allergies (Unverified Allergy, Unknown, 05/20/19) Home Meds Active Scripts Amlodipine Besylate (Norvasc 5Mg Tab) 5 Mg Tablet, 10 MG PO DAILY, #30 TAB Prov:GINETTE CHEUNG MD 02/16/23 Reported Medications Aspirin (ASPIRIN 81 MG ECTAB) 81 Mg Ectab, 81 MG PO DAILY, TAB.EC 02/14/23 Gabapentin (Gabapentin) 400 Mg Capsule, 300 MG PO TID, CAP 02/14/23 Lisinopril (Lisinopril) 20 Mg Tablet, 20 MG PO DAILY, TAB 01/05/21 Ezetimibe (Ezetimibe) 10 Mg Tablet, 10 MG PO DAILY, TAB 04/27/20 Clopidogrel Bisulfate (Plavix) 75 Mg Tablet, 75 MG PO DAILY, TAB 02/13/20 Metformin HCl (Metformin HCl) 500 Mg Tablet, 500 MG PO BID, TAB 02/12/20 Past Medical History Past Medical History: Diabetes-Type II, High Cholesterol, Hypertension Surgical History: Other Surgical History Other: LBK AMPUTATION Social History: Smokers, Lives with family RN Note Reviewed/Agreed w/PFSH: Yes Review of System Dictation Constitutional: Negative for fever,chills, and weight loss Eyes: Negative for injury, pain,redness, and discharge ENT: Negative for injury,pain or swelling Cardiovascular: Negative for chest pain, palpitations, and edema Respiratory: Negative for shortness of breath, cough, and wheezing, Abdomen/GI: Negative for abdominal pain, nausea, vomiting, diarrhea, and constipation Back: Negative for injury and pain : Negative for injury, bleeding and discharge MS/Extremity: Negative for injury and deformity Skin: Negative for rash, and discoloration Neuro: Negative for headache, weakness, numbness, tingling, and seizure Psych: Negative for suicide ideation, homicidal ideation, and hallucinations Initial Vital Sign VS Vital Signs Date Time Temp Pulse Resp B/P (MAP) Pulse Ox O2 Delivery O2 Flow Rate FiO2 07/13/24 19:18 98.1 75 20 145/41 98 Room Air 07/13/24 20:51 0 21 Physical Exam Dictation Vital Signs reviewed General Appearance: Alert, oriented x 3, no acute distress, well developed, nourished. Head and Face: non-traumatic. Eyes: PERRL, pink conjunctivas, eyelid no trauma, anterior chamber with arcus senilis. Ears: Pinnas intact and no signs of trauma or erythema ear canals clear and no discharge TM no erythema Nose: No discharge, no bleeding. Oropharynx: Mouth normal, tongue pink. pharynx clear,no erythema, tonsils no exudates, no abscesses noted, mucous membrane moist Neck: Supple, non-tender, no thyromegaly, no masses, no JVD, no bruits Breast:Deferred Chest:No tenderness, no crepitus, no paradoxical movement, no retractions Lungs:Clear, well-ventilated, symmetric, no rales, no wheezing, no rhonchi, no stridor, good breath sounds bilaterally Heart: Regular rate, regular rhythm, no murmur, no gallops Vascular: no peripheral edema, Abdomen: Soft, positive bowel sounds, nondistended, no guarding, nontender, no rebound, no masses no hepatomegaly, no splenomegaly, no Foreman's sign, no hernias. Rectal: Deferred Genital: Deferred Neurological: Normal speech, motor function intact, sensory function intact Musculoskeletal: Neck nontender, full range of motion, back nontender, full range of motion, Extremities: nontender, full range of motion Skin: Color pink, dry, no turgor, no rash, no lacerations, no abrasions, no contusions. Lymphatic: Deferred Results (Laboratory/Radiology) Laboratory/Radiology Laboratory Tests Test 07/13/24 19:33 07/13/24 19:54 White Blood Count 10.2 K/uL (4.8-10.8) Red Blood Count 4.10 MIL/uL (4.50-6.20) L Hemoglobin 11.8 g/dL (14.0-18.0) L Hematocrit 37.8 % (42-54) L Mean Corpuscular Volume 92.2 fL (79-99) Mean Corpuscular Hemoglobin 28.8 pg (27.0-33.0) Mean Corpuscular Hemoglobin Concent 31.2 g/dL (32.0-36.0) L Red Cell Distribution Width 13.7 % (11.0-15.5) Platelet Count 482 K/uL (130-400) H Mean Platelet Volume 10.1 fL (7.5-10.5) Immature Granulocyte % (Auto) 0.3 % (0-1) Neutrophils (%) (Auto) 54.9 % (40.0-77.0) Lymphocytes (%) (Auto) 24.2 % (21.0-51.0) Monocytes (%) (Auto) 11.7 % (3.0-13.0) Eosinophils (%) (Auto) 8.2 % (0.0-8.0) H Basophils (%) (Auto) 0.7 % (0.0-5.0) Neutrophils # (Auto) 5.6 K/uL (1.8-7.7) Lymphocytes # (Auto) 2.5 K/uL (1.0-4.8) Monocytes # (Auto) 1.2 K/uL (0.1-1.0) H Eosinophils # (Auto) 0.84 K/uL (0.00-0.70) H Basophils # (Auto) 0.07 K/uL (0.00-0.20) Absolute Immature Granulocyte (auto 0.03 K/uL (0-1) Nucleated Red Blood Cells 0.0 % (0.0-0.19) Sodium Level 134 mmol/L (136-145) L Potassium Level 5.7 mmol/L (3.5-5.1) H Chloride Level 101 mmol/L (101-111) Carbon Dioxide Level 26 mmol/L (21-32) Blood Urea Nitrogen 19 mg/dL (7-18) H Creatinine 1.1 mg/dL (0.5-1.3) Glomerular Filtration Rate Calc 73 mL/min (>90) Random Glucose 178 mg/dL (70-105) H Total Calcium 8.8 mg/dL (8.5-10.1) Magnesium Level 1.70 mg/dL (1.80-2.40) L Labs Reviewed?: Yes EKG: (+) rhythm (Sinus rhythm) EKG Comment: Date:07/13/2024 Time:1941 Ventricular rate:57 MT interval:159 QRS duration:75 QT/QTc:398 EKG interpretation: Sinus bradycardia Reviewed by ED Attending no STEMI ED Course ED Course Orders Procedure Category Date Status Time Cbc With Differential LAB 07/13/24 Complete 19:33 12 Lead Ekg Tracing- EKG 07/13/24 Logged Technical 19:33 Basic Metabolic Panel LAB 07/13/24 Complete 19:33 Magnesium LAB 07/13/24 Complete 19:36 Na Zircon PHA 07/13/24 Complete Cyclosil-Lokelma 10g 21:00 Edm Admit Bridge Order ADM 07/13/24 Transmitted 20:57 Admit Orders ADM 07/13/24 Transmitted 21:21 Admit Orders ADM 07/13/24 Transmitted 21:43 Current Medications Medications (Trade) Dose Ordered Sig/[place] Route PRN Reason Start Time Stop Time Status Last Admin Dose Admin Sodium Zirconium Cyclosilicate (Lokelma 10gm Powder) 10 gm ONCE ONCE PO 07/13/24 21:00 07/13/24 21:01 DC 07/13/24 21:44 Vital Signs Date Time Temp Pulse Resp B/P (MAP) Pulse Ox O2 Delivery O2 Flow Rate FiO2 07/13/24 20:51 52 18 150/60 97 Room Air* 0 21 07/13/24 19:18 98.1 75 20 145/41 98 Room Air Medical Decision Making [facility] The patient is a 69-year-old male with a history of hypertension, diabetes, PVD who reports to the emergency department after being sent by Dr. Garcia for elevated potassium. Patient otherwise denies any chest pain, shortness of breath, nausea or vomiting, patient denies any complaints. Patient reports he went to get labs done for a CT scan scheduled schedule for . CBC showed no leukocytosis, normocytic anemia, chemistry showed mild hyponatremia, potassium of 5.7, hypomagnesemia. Patient given Lokelma for hyperkalemia and will be admitted for further evaluation. Differential diagnosis: Acute kidney injury, CKD, electrolyte imbalance, dehydration Comorbidities: Hypertension, diabetes, CAD, CHF, CVA, CABG Tests considered and not ordered secondary to shared decision making include: none Previous outside records reviewed: none Risk of complication and/or morbidity or mortality of patient management: The patient meets criteria for admission. Need for emergency major/minor surgery: No There are no social concerns with this patient. I independently interpreted the tests I ordered (labs, urinalysis, etc.). I discussed the case with the hospitalist for admission. Rajiv PATEL I discussed the case with the following specialists: none. Historian: pateint. I independently interpreted imaging studies and EKGs that I ordered (US, CT, XR, EKG, etc.). External chart review: none. Medical management and examination interpretation discussions were had by me with other qualified healthcare professionals as indicated for the patient's care. DX & DISP Disposition: Inpatient Decision to Admit Date: Jul 13, 2024 Decision to Admit Time: 21:01 Departure Impression: Primary Impression: Hyperkalemia Additional Impression: Hypomagnesemia Condition: Stable Referrals: KIERAN QUINTERO (PCP) I have reviewed the case, and I agree with, Diagnosis and Plan I performed a substantive portion of the visit. I have reviewed and personally made and approve the management plan that is documented in the notes by myself with AMANDA/resident. I acknowledged full responsibility for the patient's management plan. ELIEZER BARRAZA Jul 13, 2024 19:38 LYLA MARIE DO Jul 13, 2024 22:54
[2024-07-13 20:12] LABS: BASOPHILS # (AUTO) 0.07 K/uL (0.00-0.20); BASOPHILS % (AUTO) 0.7 % (0.0-5.0); EOSINOPHILS # (AUTO) 0.84 K/uL (0.00-0.70); EOSINOPHILS % (AUTO) 8.2 % (0.0-8.0); HEMATOCRIT 37.8 % (42-54); IMMATURE GRANULOCYTE ABSOLUTE 0.03 K/uL (0-1); LYMPHOCYTES # (AUTO) 2.5 K/uL (1.0-4.8); LYMPHOCYTES % (AUTO) 24.2 % (21.0-51.0); MEAN CORPUSCULAR HEMOGLOBIN 28.8 pg (27.0-33.0); MEAN CORPUSCULAR HGB CONC 31.2 g/dL (32.0-36.0); MEAN CORPUSCULAR VOLUME 92.2 fL (79-99); MONOCYTES # (AUTO) 1.2 K/uL (0.1-1.0); MONOCYTES % (AUTO) 11.7 % (3.0-13.0); NEUTROPHILS # (AUTO) 5.6 K/uL (1.8-7.7); NEUTROPHILS % (AUTO) 54.9 % (40.0-77.0); PLATELET COUNT (AUTO) 482 K/uL (130-400); RED CELL DISTRIBUTION WIDTH 13.7 % (11.0-15.5); WHITE BLOOD COUNT (AUTO) 10.2 K/uL (4.8-10.8)
[2024-07-13 20:18] LABS: CREATININE 1.1 mg/dL (0.5-1.3)
[2024-07-13 20:27] LABS: POTASSIUM 5.7 mmol/L (3.5-5.1)
[2024-07-13] MEDS: NA ZIRCON CYCLOSIL(LOKELMA 10GM) PO ONE (21:44)
--- NOTE | 2024-07-13 21:44 | HP ---
History of Present Illness Reason for Visit: sent by cardiology office Referring MD: Dr. Vasquez History of Present Illness Mr. Cesar is a 69-year-old male that was seen and examined today on 07/13/2024. Patient's daughter Myah Cesar is at bedside. Patient reports that he came to the emergency department after being advised by his polymer chemist. Patient states he had labs drawn earlier this week and today he got called that his potassium was high. Patient denies any cramping or acute complaints. Today in the emergency department potassium 5.7, magnesium 1.7, glucose 178, no urinalysis has been collected or sent to lab, no diagnostic radiology studies has been ordered. Emergency room physician recommended that patient be admitted with a diagnosis of hyperkalemia. 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 Patient admits smoking 6 cigarettes/day. Patient denies alcohol and recreational drug use FAMILY HISTORY: Diabetes Carcinoma Hypertension Cardiovascular disease Review of Systems General: No Fever, No Chills, No Night Sweats, No Fatigue, No Malaise, No Appetite, No Other HEENT: No Head Aches, No Visual Changes, No Eye Pain, No Ear Pain, No Dysphasia, No Sinus Congestion, No Post Nasal Drip, No Sore Throat, No Other Pulmonary: No Dyspnea, No Cough, No Pleuritic Chest Pain, No Other Cardiovascular: No: Chest Pain, Palpitations, Orthopnea, Paroxysmal Noc. Dyspnea, Edema, Lt Headedness, Other Gastrointestinal: No: Nausea, Vomiting, Abdominal Pain, Diarrhea, Constipation, Melena, Hematochezia, Other Genitourinary: No Dysuria, No Frequency, No Incontinence, No Hematuria, No Retention, No Other Musculoskeletal: No: other, neck pain, shoulder pain, arm pain, back pain, hand pain, leg pain, foot pain Skin: No Urticaria, No Rash, No Other Neurological: No: Weakness, Numbness, Incoordination, Change in speech, Confusion, Seizures, Other Allergies: Coded Allergies: No Known Allergies (Unverified Allergy, Unknown, 05/20/19) Scheduled Amlodipine Besylate (Norvasc 5Mg Tab), 10 MG PO DAILY Aspirin (Aspirin 81 Mg Ectab), 81 MG PO DAILY, (Reported) Clopidogrel Bisulfate (Plavix), 75 MG PO DAILY, (Reported) Ezetimibe (Ezetimibe), 10 MG PO DAILY, (Reported) Gabapentin (Gabapentin), 300 MG PO TID, (Reported) Lisinopril (Lisinopril), 20 MG PO DAILY, (Reported) Metformin HCl (Metformin HCl), 500 MG PO BID, (Reported) Exam Vital Signs Vital Signs Date Time Temp Pulse Resp B/P (MAP) Pulse Ox O2 Delivery O2 Flow Rate FiO2 07/13/24 20:51 52 18 150/60 97 Room Air* 0 21 07/13/24 19:18 98.1 General Appearance: Alert, Oriented X3, Cooperative, No acute distress HEENT: Atraumatic, EOMI Respiratory: Clear to auscultation, Normal air movement, NL respiratory effort Cardiovascular: Regular rate, Regular rhythm, Normal S1, Normal S2 Abdominal: Normal bowel sounds, No tenderness Extremities: Other (Left AKA) Skin: No significant lesion Neuro: Strength at 5/5 X4 ext (Right lower extremity), Cranial nerves 3-12 NL Psych/Mental Status: Mental status NL, Mood NL, Thoughts/Content NL Assessment/Plan ASSESSMENT: [ Hyperkalemia, POA Uncontrolled Diabetes mellitius type2, POA Hypomagnesemia, POA CHF with EF 40-50% Hyperlipidemia Hypertension CAD Peripheral vascular disease PLAN: [ Admit patient to medical floor as inpatient status. Place patient on telemetry monitoring. Patient received Lokelma 10 g by mouth times 1. Recheck labs in a.m. Check hemoglobin A1c in a.m. Glucometer checks a.c. and HS 1800 ADA diet Humulin R sliding scale 1/2 dose Replace magnesium per hospital protocol Monitor intake and output every shift Weight patient daily 1500 mL daily fluid restriction Consider resuming home medications once they are reconciled For now, Hydralazine 10 mg IV every 4 hours for systolic blood pressure greater than 160 mmHg Patient states that he has a outpatient CT of right lower extremity scheduled for 07/15/2024. Here at [facility] with Dr. Garcia GI prophylaxis, famotidine 20 mg by mouth once daily. DVT prophylaxis, Herrera's and SCDs ADVANCED CARE PLANNING 1. Which of the following were discussed? Hospice Care - Yes Therapeutic options - Yes Advance Directives - Yes patient states he does not have any advance directives in place at this time, however his daughter Myah can make decisions for him if he becomes unable. Other discussions - patient wishes to remain a full code at this time 2. Discussed with who? Patient 3. Voluntary nature of this service was explained to the patient? Yes 4. Amount of time spent - ___ 16 minutes ____ 5. Reviewed by Physician? (if this service was performed by NPP) Yes This document was generated in part using voice recognition software, occasional wrong word or sound alike substitutions may have occurred due to the inherent limitations of voice recognition software. Read the chart carefully and recognize using context, where the substitutions have occurred. Although every effort was made to edit the content, information security analyst and typing errors may occur ATTESTATION BY PHYSICIAN I have seen and examined the patient. I reviewed the documentation, medical decision making, and treatment plan as noted by the mid-level provider above. I agree with the findings and plan of care. CLAUDIA BRAVO [facility] Jul 13, 2024 21:44
[2024-07-13] MEDS ORDERED: acetaMINOPHEN 325 MG TAB PO PRN (23:30)
[2024-07-13] MEDS ORDERED: hydrALAZine 20MG/ML VIAL IV PRN (23:30)
[2024-07-13] MEDS ORDERED: ondanSETRON 4MG INJ IV PRN (23:30)
[2024-07-13] MEDS ORDERED: morPHINE 2 MG SYG IVP PRN (23:30)
[2024-07-14 01:07] LABS: APPEARANCE,URINE CLEAR (CLEAR); BILIRUBIN,URINE NEGATIVE (NEGATIVE); COLOR,URINE COLORLESS (YELLOW); GLUCOSE, URINE (UA) >=1000 mg/dL (NEGATIVE); KETONES,URINE NEGATIVE (NEGATIVE); LEUKOCYTE ESTERASE ,URINE NEGATIVE Leu/uL (NEGATIVE); NITRATE,URINE NEGATIVE (NEGATIVE); PROTEIN,URINE 300 mg/dL (NEGATIVE); UROBILINOGEN,URINE 0.2 mg/dL (0.2-1.0)
[2024-07-14 01:08] LABS: ADD UA MICROSCOPIC YES
[2024-07-14] MEDS ORDERED: ATOR-2 PO (01:18)
[2024-07-14] MEDS ORDERED: LOSA50TA64 PO (01:19)
[2024-07-14 01:21] LABS: BACTERIA,URINE RARE /HPF (None Seen); SQUAMOUS EPITHELIAL CELL,UR RARE /HPF (0-2)
[2024-07-14 06:43] LABS: BASOPHILS # (AUTO) 0.07 K/uL (0.00-0.20); BASOPHILS % (AUTO) 0.8 % (0.0-5.0); EOSINOPHILS # (AUTO) 0.79 K/uL (0.00-0.70); EOSINOPHILS % (AUTO) 8.5 % (0.0-8.0); HEMATOCRIT 37.9 % (42-54); IMMATURE GRANULOCYTE ABSOLUTE 0.04 K/uL (0-1); LYMPHOCYTES # (AUTO) 2.6 K/uL (1.0-4.8); LYMPHOCYTES % (AUTO) 27.5 % (21.0-51.0); MEAN CORPUSCULAR HEMOGLOBIN 28.7 pg (27.0-33.0); MEAN CORPUSCULAR HGB CONC 31.1 g/dL (32.0-36.0); MEAN CORPUSCULAR VOLUME 92.2 fL (79-99); MONOCYTES # (AUTO) 0.8 K/uL (0.1-1.0); MONOCYTES % (AUTO) 8.4 % (3.0-13.0); NEUTROPHILS # (AUTO) 5.1 K/uL (1.8-7.7); NEUTROPHILS % (AUTO) 54.4 % (40.0-77.0); PLATELET COUNT (AUTO) 489 K/uL (130-400); RED BLOOD CELL COUNT(AUTO) 4.11 MIL/uL (4.50-6.20); RED CELL DISTRIBUTION WIDTH 13.8 % (11.0-15.5); WHITE BLOOD COUNT (AUTO) 9.3 K/uL (4.8-10.8)
--- NOTE | 2024-07-14 07:08 | EKG ---
[facility] Test Date: 2024-07-13 Test Time: 19:42:53 Pat Name: IFEOMA MEZA Department: EDHIP Room: ED 11 Gender: M Program Management Manager: [id number] : 1955 Requested By: ELIEZER BARRAZA Order Number: [id number] Reading MD: Troy Webb Measurements Intervals [place] Rate: 57 P: 12 OK: 159 QRS: 27 QRSD: 75 T: 36 QT: 398 QTc: 390 Interpretive Statements Sinus rhythm Compared to ECG 12/14/2023 00:10:03 No significant changes Electronically Signed On 07-15-2024 10:29:20 FINISH MOLDER by Troy Webb Please click the below link to view image of tracing.
[2024-07-14 07:17] LABS: CREATININE 1.2 mg/dL (0.5-1.3); MAGNESIUM 1.6 mg/dL (1.80-2.40); PHOSPHORUS 4.3 mg/dL (2.5-4.9); POTASSIUM 4.8 mmol/L (3.5-5.1)
[2024-07-14 07:23] LABS: HEMOGLOBIN A1C 7.1 % (4.0-6.0)
[2024-07-14] MEDS: INSULIN humuLIN R 100 UNIT/ML 3ML SQ SCH (07:30)
[2024-07-14] MEDS: MAGNESIUM 2GM PREMIX 50ML 50 ML IV PRN (07:41)
[2024-07-14] MEDS: FAMOTIDINE 20MG TAB PO SCH (08:22)
[2024-07-14 14:26] VITALS: BP 151/48; PULSE 60; RESP 14; TEMP 98.1; O2SAT 98
--- NOTE | 2024-07-14 14:27 | NUR ---
DISCHARGE BY RAH RN
--- NOTE | 2024-07-14 15:12 | DS ---
Discharge Summary Hospital Course Summary: The patient is a 69-year-old man with a medical history that includes type 2 diabetes mellitus, peripheral vascular disease status post left above-knee amputation, hypertension, hyperlipidemia, and congestive heart failure with an ejection fraction (EF) of 40-50% presented to the emergency department on 2024, after receiving a call from his safety representative's office due to elevated potassium levels. The patient denied experiencing any chest pain, shortness of breath, dizziness, or other symptoms. Upon presentation, his blood pressure was 145/41, otherwise nonsignificant. Laboratory results showed potassium levels at 5.7 mEq/L, magnesium at 1.70 mg/dL, BUN at 19 mg/dL, and creatinine at 1.1 mg/dL. He was treated for hyperkalemia with Lokemia and closely monitored for any potential arrhythmias through telemetry monitoring. Subsequent lab tests on July 14, 2024, indicated an improvement in potassium levels, which decreased to 4.8 mEq/L from 5.7 mEq/L. The patient's home medications were reviewed and reconciled. It was noted that he was combining losartan 50 mg and lisinopril 20 mg for hypertension management. His hyperkalemia was considered medication-induced, and he was briefly educated about discontinuing lisinopril and continuing with losartan and not combine both medication in the future. The patient also reported intermittent claudication symptoms in his right lower limb along with severe neuropathy. He is scheduled for a CT angiogram of the right lower limb with Dr. Garcia on July 15, 2024. At present, the patient denies any symptoms, his hyperkalemia has resolved, and he is medically stable for discharge. I have discussed plan with patient's daughter on the phone. Follow-up care will be managed by his primary care provider. Procedure(s): No radiology investigations were performed during this hospitalization Assessment/Plan: ASSESSMENT: Hyperkalemia, medication induced, resolved POA Uncontrolled diabetes mellitus type 2, POA Hypomagnesemia, POA Thrombocytosis, POA CHF with EF 40-50% Hyperlipidemia Hypertension CAD Peripheral vascular disease, S/p left above knee amputation, POA Class 1 Obesity, BMI 30.1 kg/m2 Admission Date: 07/13/2024 Discharge Date: 07/14/2024 Condition: Stable Activity: Ad Jewels Disposition: Home No radiology investigations, procedures were performed during hospitalization. Home medications: Stop taking LISINOPRIL 20 mg and continue taking Losartan 50 mg. Continue taking other home medications. Discharge medications: None Follow up appointment: Follow up with the primary care provider within 2 weeks of the discharge We reinforced the importance of medication compliance and follow up appointment with the provider. Discharge Instructions: Avoid Potassium rich food products and supplements. The patient received a brief education regarding the risks associated with the combining use of losartan and lisinopril, as both medications may elevate po tassium levels, potentially leading to serious cardiac issues such as life- threatening arrhythmias. A program or project administrator assisted in conveying this information, and the patient, who speaks Canadian, expressed comprehension. Visit the nearest emergency department or call 911 should you experience palpitations, chest pain, shortness of breath or any lifethreatening symptoms. Home Medications: Active Scripts Amlodipine Besylate (Norvasc 5Mg Tab) 5 Mg Tablet, 10 MG PO DAILY, #30 TAB Prov:GINETTE CHEUNG MD 02/16/23 Reported Medications Losartan Potassium (Losartan Potassium) 50 Mg Tablet, 1 TAB PO DAILY for 30 Days, #30 TAB 0 Refills 07/14/24 Atorvastatin Calcium (Atorvastatin Calcium) 80 Mg Tablet, 1 TAB PO DAILY for 30 Days, #30 TAB 0 Refills 07/14/24 Aspirin (ASPIRIN 81 MG ECTAB) 81 Mg Ectab, 81 MG PO DAILY, TAB.EC 02/14/23 Gabapentin (Gabapentin) 400 Mg Capsule, 300 MG PO TID, CAP 02/14/23 Ezetimibe (Ezetimibe) 10 Mg Tablet, 10 MG PO DAILY, TAB 04/27/20 Clopidogrel Bisulfate (Plavix) 75 Mg Tablet, 75 MG PO DAILY, TAB 02/13/20 Metformin HCl (Metformin HCl) 500 Mg Tablet, 500 MG PO BID, TAB 02/12/20 Discontinued Reported Medications Lisinopril (Lisinopril) 20 Mg Tablet, 20 MG PO DAILY, TAB 01/05/21 Continued Medications: Amlodipine Besylate (Norvasc 5Mg Tab) 5 Mg Tablet 10 MG PO DAILY, #30 TAB Aspirin (Aspirin 81 Mg Ectab) 81 Mg Ectab 81 MG PO DAILY, TAB.EC Atorvastatin Calcium (Atorvastatin Calcium) 80 Mg Tablet 1 TAB PO DAILY for 30 Days, #30 TAB 0 Refills Clopidogrel Bisulfate (Plavix) 75 Mg Tablet 75 MG PO DAILY, TAB Ezetimibe (Ezetimibe) 10 Mg Tablet 10 MG PO DAILY, TAB Gabapentin (Gabapentin) 400 Mg Capsule 300 MG PO TID, CAP Losartan Potassium (Losartan Potassium) 50 Mg Tablet 1 TAB PO DAILY for 30 Days, #30 TAB 0 Refills Metformin HCl (Metformin HCl) 500 Mg Tablet 500 MG PO BID, TAB Discontinued Medications: Lisinopril (Lisinopril) 20 Mg Tablet 20 MG PO DAILY, TAB Time spent arranging discharge: 31-60 minutes ATTESTATION BY PHYSICIAN I have seen and examined the patient. I reviewed the documentation, medical decision making, and treatment plan as noted by the resident provider above. I agree with the findings and plan of care. Augustus James MD, MANALI MD Jul 14, 2024 15:12
--- NOTE | 2024-07-14 15:34 | NUR ---
DCP: HOME Sw met with pt who states he lives with his [address], and he remains independent of all his ADLS. Daughters raiza [phone] and Salud [phone] assist needed. Pt does use a w/c, reg walker, rollator and shower chair as needed. No HH or HD services. PCP is Michelle Preciado and uses [facility] for rx. Pt denies dc needs and will return home at dc Addendum: 07/14/24 at 1540 by STEFFANIE MORALES Amended: Links added.
[2024-07-14] MEDS ORDERED: atorVAStatin 40 MG TABLET PO SCH (21:00)
[2024-07-15] MEDS ORDERED: LoSARTan 50 MG TABLET PO SCH (09:00)
== END 2024-07-14 14:27 | disposition home or self-care (01) ==
LOC: EDH 19:15 → INTOOBSV 21:43 → EDHIP 21:43
PROVIDERS: ADMIT Internal Medicine; ATTEND Internal Medicine
DX: E11.65 Type 2 diabetes mellitus with hyperglycemia (principal); E83.42 Hypomagnesemia; D75.839 Thrombocytosis, unspecified; I11.0 Hypertensive heart disease with heart failure; I50.22 Chronic systolic (congestive) heart failure; E78.5 Hyperlipidemia, unspecified; E87.5 Hyperkalemia; E66.811 Obesity, class 1; I25.10 Atherosclerotic heart disease of native coronary artery without angina pectoris; E11.51 Type 2 diabetes mellitus with diabetic peripheral angiopathy without gangrene; E11.40 Type 2 diabetes mellitus with diabetic neuropathy, unspecified; F17.210 Nicotine dependence, cigarettes, uncomplicated; Z95.1 Presence of aortocoronary bypass graft; Z89.612 Acquired absence of left leg above knee; Z79.82 Long term (current) use of aspirin; Z68.30 Body mass index [BMI] 30.0-30.9, adult; Z79.899 Other long term (current) drug therapy
CPT/HCPCS: 99284; 83735 ×2; 80048 ×2; 85025 ×2; 36415 ×2; 93005; 96365; 83036; 84100; 82948 ×2; 81001; G0378 ×17; J3475; 99285

== ENCOUNTER → 2024-07-15 | Outpatient (CLI) | payer OTHER ==
[~2024-07-15] MED LIST changes: +ATOR-2 PO; +IOHEXOL 350 MG/ML 100ML INFUS..BTL IV ONE; +IOHEXOL-350 50ML VIAL IV ONE; -LISI20TA24 PO; +LOSA50TA64 PO
--- NOTE | 2024-07-15 17:26 | HMCIMG ---
CT ANGIO ABD AORTA W RUNOFF HISTORY: Peripheral vascular disease COMPARISON: None TECHNIQUE: CT angiography of the abdomen and pelvis was obtained using angiographic technique with maximum intensity projection reconstruction images. Patient was given 150 cc of Omnipaque through intravenous route. Oral contrast was not given. FINDINGS: No pleural effusion is seen bilaterally. Mild bilateral pulmonary infiltrates are seen. Degenerative changes of the thoracolumbar spine are present. The heart is not enlarged. Coronary arterial calcifications are seen. The liver, spleen, adrenal glands and pancreas are unremarkable. There is no evidence of hydronephrosis bilaterally. There are bilateral renal vascular calcifications. No evidence of renal stone is seen. Fecal material is seen in the colon. There are normal size retroperitoneal and mesenteric lymph nodes. No ascites is seen. Atherosclerotic changes are present. There is diffuse atherosclerotic disease. No evidence of abdominal aortic aneurysm is seen. The celiac, superior mesenteric and bilateral renal arteries are grossly patent. Visualized portion of the iliac arteries are grossly patent. Left femoral stent appears to be occluded. There is left above knee amputation. Multiple short segment stenosis are seen of the right common femoral artery with adjacent collateral vascularization. The right popliteal, posterior tibial, anterior tibial arteries are grossly patent otherwise with atherosclerotic changes. Pelvic sidewalls are symmetric bilaterally. Postop changes are seen of the lower lumbar spine. IMPRESSION: 1. Left femoral stent appears to be occluded. There is left above knee amputation. Multiple short segment stenosis are seen of the right common femoral artery with adjacent collateral vascularization. The right popliteal, posterior tibial, anterior tibial arteries are grossly patent otherwise with atherosclerotic changes. CT was performed with one or more following dose reduction techniques: automated exposure control, adjustment of the mA and kv according to patient's size, or use of a iterative reconstruction technique.
== END | disposition home or self-care (01) ==
LOC: RAH 09:51
PROVIDERS: ATTEND Internal Medicine Cardiovascular Disease
DX: I25.10 Atherosclerotic heart disease of native coronary artery without angina pectoris (principal); I73.9 Peripheral vascular disease, unspecified; I70.8 Atherosclerosis of other arteries; N28.89 Other specified disorders of kidney and ureter; M47.815 Spondylosis without myelopathy or radiculopathy, thoracolumbar region; D65 Disseminated intravascular coagulation [defibrination syndrome]; R91.8 Other nonspecific abnormal finding of lung field; Z89.612 Acquired absence of left leg above knee
CPT/HCPCS: 75635; Q9967 ×2

== ENCOUNTER → 2024-07-29 | Outpatient (CLI) | payer OTHER ==
[~2024-07-29] MED LIST changes: -IOHEXOL 350 MG/ML 100ML INFUS..BTL IV ONE; -IOHEXOL-350 50ML VIAL IV ONE
[2024-07-29 16:18] LABS: EOSINOPHILS # (AUTO) 0.88 K/uL (0.00-0.70); EOSINOPHILS % (AUTO) 8.9 % (0.0-8.0); HEMATOCRIT 38.9 % (42-54); IMMATURE GRANULOCYTE ABSOLUTE 0.04 K/uL (0-1); LYMPHOCYTES # (AUTO) 2.6 K/uL (1.0-4.8); LYMPHOCYTES % (AUTO) 26.3 % (21.0-51.0); MEAN CORPUSCULAR HEMOGLOBIN 27.8 pg (27.0-33.0); MEAN CORPUSCULAR HGB CONC 29.8 g/dL (32.0-36.0); MEAN CORPUSCULAR VOLUME 93.3 fL (79-99); MONOCYTES # (AUTO) 0.9 K/uL (0.1-1.0); MONOCYTES % (AUTO) 9.3 % (3.0-13.0); NEUTROPHILS # (AUTO) 5.3 K/uL (1.8-7.7); NEUTROPHILS % (AUTO) 54.1 % (40.0-77.0); PLATELET COUNT (AUTO) 431 K/uL (130-400); RED BLOOD CELL COUNT(AUTO) 4.17 MIL/uL (4.50-6.20); RED CELL DISTRIBUTION WIDTH 13.4 % (11.0-15.5); WHITE BLOOD COUNT (AUTO) 9.9 K/uL (4.8-10.8)
[2024-07-29 16:29] LABS: POTASSIUM 4.8 mmol/L (3.5-5.1)
[2024-07-29 16:37] LABS: INR <= 0.93 (0.85-1.15); PROTHROMBIN TIME 10.1 SEC (9.6-11.6)
[2024-07-29 16:38] LABS: PARTIAL THROMBOPLASTIN TIME 25.7 SEC (26.3-35.5)
== END | disposition home or self-care (01) ==
LOC: LAB 15:30
PROVIDERS: ATTEND Internal Medicine Cardiovascular Disease
DX: I73.9 Peripheral vascular disease, unspecified (principal); I10 Essential (primary) hypertension; E78.5 Hyperlipidemia, unspecified; I63.9 Cerebral infarction, unspecified
CPT/HCPCS: 36415; 80048; 85025; 85610; 85730

== ENCOUNTER 2024-09-03 06:02 | Day surgery (SDC) | payer OTHER ==
[2024-08-31 10:41] VITALS: BP 172/55; PULSE 79; RESP 18; TEMP 98.3
[2024-08-31 10:46] LABS: BASOPHILS # (AUTO) 0.07 K/uL (0.00-0.20); BASOPHILS % (AUTO) 0.7 % (0.0-5.0); EOSINOPHILS # (AUTO) 0.91 K/uL (0.00-0.70); EOSINOPHILS % (AUTO) 9.5 % (0.0-8.0); IMMATURE GRANULOCYTE ABSOLUTE 0.03 K/uL (0-1); LYMPHOCYTES # (AUTO) 2.5 K/uL (1.0-4.8); MEAN CORPUSCULAR HGB CONC 31.5 g/dL (32.0-36.0); MEAN CORPUSCULAR VOLUME 88.9 fL (79-99); MONOCYTES # (AUTO) 0.8 K/uL (0.1-1.0); MONOCYTES % (AUTO) 8.1 % (3.0-13.0); NEUTROPHILS # (AUTO) 5.3 K/uL (1.8-7.7); NEUTROPHILS % (AUTO) 55.4 % (40.0-77.0); PLATELET COUNT (AUTO) 458 K/uL (130-400); RED CELL DISTRIBUTION WIDTH 13.5 % (11.0-15.5); WHITE BLOOD COUNT (AUTO) 9.6 K/uL (4.8-10.8)
[2024-08-31 10:54] LABS: POTASSIUM 4.5 mmol/L (3.5-5.1)
[2024-08-31 10:56] LABS: INR 0.95 (0.85-1.15); PROTHROMBIN TIME 10.1 SEC (9.6-11.6)
[2024-08-31 10:58] LABS: PARTIAL THROMBOPLASTIN TIME 25.2 SEC (26.3-35.5)
[2024-08-31 11:16] LABS: B-TYPE NATRIURETIC PEPTIDE 37 pg/mL (0-100)
[2024-09-03] VITALS (10 sets, daily range): BP systolic 134–192; BP diastolic 47–83; PULSE 47–66; RESP 11–18; TEMP 97.5–97.6
[~2024-09-03] VITALS: Ht 162.6 cm; Wt 72.8 kg
[~2024-09-03 06:02] MED LIST changes: -LOSA50TA64 PO
[2024-09-03] MEDS ORDERED: HEParin 10,000 UNIT/10ML (1,000 UNIT/ML) VIAL ONE ×2 (07:07→08:52)
[2024-09-03] MEDS ORDERED: LIDOCAINE HCL 400MG/20ML VIAL ONE (07:07)
[2024-09-03] MEDS ORDERED: IOHEXOL 350 MG/ML 100ML INFUS..BTL IV ONE (07:07)
[2024-09-03] MEDS ORDERED: HEParin-NS 1,000 UNIT/500 ML 1,000 ML IV ONE (07:08)
[2024-09-03] MEDS ORDERED: IODIXANOL 320 MG/ML 100 ML VIAL ONE (07:08)
[2024-09-03] MEDS ORDERED: NITROGLYCERIN 50MG VIAL ONE (07:09)
[2024-09-03] MEDS ORDERED: niCARDIpine 25MG INJ IV ONE (07:10)
[2024-09-03] MEDS ORDERED: FENTanyl CITRate PF 50 MCG/1 ML 2ML VIAL ONE ×2 (07:36→08:42)
[2024-09-03] MEDS ORDERED: MIDAZOLAM HCL 1 MG/ML 2ML VIAL ONE ×2 (07:37→08:42)
[2024-09-03] MEDS: 0.9%NACL 1000ML 1,000 ML IV SCH (08:37)
[2024-09-03] MEDS ORDERED: HEParin-NS 1,000 UNIT/500 ML 500 ML IV ONE (08:58)
[2024-09-03] MEDS ORDERED: ASPIRIN 81 MG EC TAB ONE (09:35)
[2024-09-03] MEDS ORDERED: cloPIDOgrel 300MG TAB ONE (09:36)
--- NOTE | 2024-09-03 10:29 | PRN ---
Procedure:Peripheral Angiogram Procedure Note Procedure Note: Peripheral Angiogram Date/Time of Service: 09/03/2024 Referring Physician: Dr. Garcia Procedures Performed: Peripheral angiogram, balloon angioplasty, balloon lithotripsy, and drug coated balloon angioplasty of the right common femoral artery, right superficial femoral artery, and proximal right popliteal artery. Indications for Procedure: PAD, Craven category three symptoms (right lower extremity) s/p failed right-sided fem/popliteal bypass surgery PAD, status post peripheral intervention of the right anterior tibial artery done in Jul 2024 PAD, status post peripheral intervention of the left common femoral artery Osteomyelitis in the left lower extremity resulting in left-sided BKA DM II Description of Procedure: [After informed consent was obtained the patient was prepped and draped in the usual sterile fashion a 6 Taiwanese arterial sheath with a hemostatic valve was inserted into the right radial using a modified Salinger technique on the first pass front wall puncture. A JR 4 catheter was then advanced over a soft angled Glidewire into the lower abdominal aorta and a right lower extremity arteriogram was obtained. The findings are listed below.] Findings: Lower Abdominal aorta: patent Right common iliac artery: patent Right external iliac artery: patent Right internal iliac artery: patent Right common femoral artery: 90% stenosis in the proximal segment of the artery Right profunda artery: patent Right superficial femoral artery: 80% stenosis in the proximal segment of the artery. 100% stenosis (OB SCRUB TECH = 100mm) in the middle segment of the artery. The artery reconstitutes distally via collateral blood flow Right popliteal artery: 70% stenosis in the proximal segment of the artery Right anterior tibial artery: patent Right tibioperoneal artery: patent Right peroneal artery: patent Right posterior tibial artery: patent Right pedal arch: Complete, with slow two-vessel runoff supplying the anterior and posterior segments of the right pedal arch. Intervention: After reviewing the above-mentioned findings the decision was made to intervene on the right common femoral artery, right superficial femoral artery and proxim al right popliteal artery. The soft angled Glidewire was inserted into the JR4 and was advanced to the proximal right common femoral artery. We then removed the JR4 catheter and exchanged the short 6 Taiwanese arterial sheath for a 120 cm Radial to popliteal arterial sheath, which was advanced to the right external iliac artery. We then administered heparin (7000 units). We then advanced a 0.018 command 18 guidewire and 0.018 Tal cross catheter across the areas stenosis and into the distal right peroneal artery. We then removed the Tal cross catheter and performed balloon angioplasty (2.0 x 150 mm > 4.0 x 150mm) in the right common femoral artery, proximal, mid, and distal right superficial femoral artery, and proximal right popliteal artery. We then performed balloon lithotripsy (shockwave 6.0 x 80 mm) in the right common femoral artery, proximal and mid right superficial femoral artery. We then performed drug coated balloon angioplasty (Medtronic Inpact 6.0 x 80mm and 6.0 x 150mm) in the right common femoral artery, proximal, and mid right superficial femoral artery and (Medtronic Inpact 5.0 x 150mm) in the distal right superficial femoral artery and proximal right popliteal artery. The balloons were then removed and repeat angiography was performed, which revealed widely patent right common femoral artery, right superficial femoral artery, the and right popliteal artery, with out significant dissection or dissection and brisk two vessel runoff supplying the anterior posterior segments of the right pedal arch. The guidewire and 120cm Radial to popliteal arterial sheath was then removed and the arteriotomy site in the right radial artery was successfully closed using a TR band. The patient tolerated the procedure well and without issue. Estimated Blood Loss: [40]mL Complications: [ None] Conclusion: 1. PAD, Lavinia category three symptoms (right lower extremity), 90% stenosis in the right common femoral artery status post successful treatment with balloon angioplasty balloon lithotripsy, drug balloon angioplasty, 80% stenosis in the proximal right superficial femoral artery and 100% stenosis in the mid right superficial femoral artery status post successful treatment with balloon angio plasty, balloon lithotripsy, and drug coated balloon angioplasty, 70% stenosis in the proximal right popliteal artery status post successful treatment with balloon angioplasty and drug coated balloon angioplasty, resulting in patent arteries, without significant dissection, or perforation, and brisk two vessel runoff supplying the anterior posterior segments of the right pedal arch. 2. PAD, s/p successful peripheral intervention with orbital atherectomy and balloon angioplasty of the right anterior tibial artery done in Jul 2024 3. PAD, status post peripheral intervention of the left common femoral artery 4. Osteomyelitis in the left lower extremity resulting in left-sided BKA 5. DM II Recommendations/Instructions: 1. Continue goal-directed medical therapy. 2. Continue aspirin 81 mg daily and plavix 75 mg daily 3. Wrist precautions 4. 4 hours of bedrest 5. Start NS at 100 mL/hour x3 hours. 6. Okay to DC once the TR band removal protocol has been complete in the right wrist is soft, free of bruising, bleeding, and or hematoma formation. 7. No driving for the next 48 hours. 8. No heavy lifting or strenuous exercise for the next two weeks. 9. Please have the patient follow up with Dr. Garcia in 1-2 weeks (afternoon appointment). AGUSTIN GARCIA MD Sep 03, 2024 10:29
[2024-09-03] MEDS ORDERED: 0.9%NACL 1000ML 1,000 ML IV SCH (10:30)
[2024-09-03] MEDS ORDERED: GLUCAGON 1MG KIT 1 MG ML IM PRN (10:30)
[2024-09-03] MEDS ORDERED: DEXTROSE 50%-WATER 50 ML DISP.SYRIN IV PRN (10:30)
--- NOTE | 2024-09-03 13:48 | NUR ---
vasband removed at this time. No bleeding noted to site. reinforced instructions for radial site care.
== END 2024-09-03 14:30 | disposition home or self-care (01) ==
LOC: DAH 06:02
PROVIDERS: ATTEND Internal Medicine Cardiovascular Disease
DX: E11.51 Type 2 diabetes mellitus with diabetic peripheral angiopathy without gangrene (principal); I70.201 Unspecified atherosclerosis of native arteries of extremities, right leg; I70.92 Chronic total occlusion of artery of the extremities; M86.8X6 Other osteomyelitis, lower leg; I10 Essential (primary) hypertension; E78.5 Hyperlipidemia, unspecified; E11.40 Type 2 diabetes mellitus with diabetic neuropathy, unspecified; Z79.82 Long term (current) use of aspirin; Z86.73 Personal history of transient ischemic attack (TIA), and cerebral infarction without residual deficits; Z79.01 Long term (current) use of anticoagulants; Z79.84 Long term (current) use of oral hypoglycemic drugs; Z98.890 Other specified postprocedural states; Z79.899 Other long term (current) drug therapy
CPT/HCPCS: 80048; 83880; 85025; 85610; 85730; 36415; 75710; 85347 ×2; 82948 ×2; C9764; C1725 ×6; C1894 ×4; C1769 ×3; C1887; C2623; A4649; J3010 ×2; J3490 ×3; J7030; J1644 ×4; J2250 ×2; Q9967; A4215; A4222; A4221; A4663; A4216; A4606; A4223 ×3; 96360; 96361; 99156; 99157